=== PATIENT | female | born 1955 | race Caucasian/White ===

== ENCOUNTER 2019-03-25 08:32 | Day surgery (SDC) | payer OTHER ==
[~2019-03-25 08:32] MED LIST: CHONDR SU A NA/HYALUR INTRAOC KIT (SURGICARE) ONE; EPINEPHRINE INJ/PF 1 MG/1 ML AMPULE ONE; KETOROLAC TROMETHAMINE 0.45% 4 DROP/0.4 ML DROPERETTE OS PRN; LIDOCAINE 1%/PHENYLEPHRINE 1.5% 1 ML VIAL ONE
[2019-03-25] MEDS: CYCLOPENTOLATE 0.2%/PHENYLEPHRINE 1% OPH SOLN 2 ML OS PRN ×3 (08:50→09:11)
[2019-03-25] MEDS: TETRACAINE HCL 0.5% OPH SOLN 4 ML OS PRN ×3 (08:50→09:27)
[2019-03-25] MEDS: BESIFLOXACIN HCL 0.6% OPH SUSP 5 ML BOTTLE OS PRN ×4 (08:50→09:46)
[2019-03-25] MEDS: TROPICAMIDE 1% OPH SOLN 15 ML OS PRN ×3 (08:50→09:11)
[2019-03-25] MEDS ORDERED: MIDAZOLAM 2 MG/2 ML INJ ONE (09:10)
[2019-03-25] MEDS ORDERED: FENTANYL CITRATE INJ/PF 100 MCG/2 ML AMPUL ONE (09:10)
[2019-03-25] MEDS: DORZOLAMIDE HCL 2%/TIMOLOL MALEAT 0.5% OPH SOLN 10 ML OS PRN ×2 (09:46)
--- NOTE | 2019-03-25 14:31 | Operative Report ---
Operative Report[facility] Operative Report: DATE OF SURGERY: March 25, 2019 PREOPERATIVE DIAGNOSIS: NUCLEAR CATARACT, LEFT EYE. POSTOPERATIVE DIAGNOSIS: NUCLEAR CATARACT, LEFT EYE. PROCEDURE PERFORMED: PHACOEMULSIFICATION WITH POSTERIOR CHAMBER INTRAOCULAR LENS IMPLANT, LEFT EYE. SURGEON: Narciso Willams DO MEDICATIONS AND ANESTHESIA: Versed: IV Versed Tetracaine drops: 1 to 2 drops given as needed COMPLICATION: None INDICATIONS FOR SURGERY: Medical necessity: Best corrected visual acuity worse than 20/40 secondary to cataracts with impairment of ability to carry out needs or desired activities, blurred vision, visual distortion, reduced contrast sensitivity and/or glare with association functional impairment and supporting documentation/testing, and cataracts causing symptomatic impairment of visual functions not corrected with tolerable changes in glasses or contact lenses interfering with activities of daily life. PROCEDURE: Consent: The risks, benefits and alternatives of this procedures was discussed with the patient. The patient read and signed the consent forms, was identified and was seated in the exam chair. IOL: MX 60 E IOL Diopters: 23.5 Phacoemulsification with posterior chamber intraocular lens implant: The face was prepped with 5% povidone iodine solution, and a few drops of 5% povidone iodine solution was instilled into the inferior fornix. A non-fenestrated drape was placed over the eye and the lids were parted with the speculum. A paracentesis was made with a 15 degree blade, and 1% lidocaine MPF followed by viscoelastic was injected into the anterior chamber. A 2.4 mm metal micro- keratome was used to create a temporal clear corneal incision. A circular anterior capsulorrhexis was created, followed by hydro-dissection and hydro- delineation. The phacoemulsification hand piece was inserted and the nucleus was removed with the Phaco chop technique. The irrigation-aspiration hand piece was used to remove the residual cortex, and vacuum the posterior capsule. The capsular bag was inflated and viscoelastic and the above-mentioned IOL was injected into the eye with care to insert both leaning and trailing haptics in the capsular bag. The irrigation/aspiration hand piece was reinserted to remove residual viscoelastic from the capsular bag and anterior chamber. The corneal incision was hydrated, and anterior chamber was inflated with sterile BSS via the paracentesis site, and found to be watertight. Postop medication:1 drop of prednisolone into operative by followed by 1 drop of Cosopt into operative eye followed by 1 drop of Besivance intraoperative by Other:
== END 2019-03-25 10:26 | disposition home or self-care (01) ==
LOC: SC 08:32
PROVIDERS: ATTEND Ophthalmology
DX: H25.12 Age-related nuclear cataract, left eye (principal); Z79.899 Other long term (current) drug therapy; Z87.891 Personal history of nicotine dependence; I10 Essential (primary) hypertension; E78.00 Pure hypercholesterolemia, unspecified
CPT/HCPCS: 66984; V2632; J2250; J3490 ×2; J0171; J2370; 142; J3010

== ENCOUNTER 2019-04-08 06:41 | Day surgery (SDC) | payer OTHER ==
[~2019-04-08 06:41] MED LIST changes: -CHONDR SU A NA/HYALUR INTRAOC KIT (SURGICARE) ONE; -EPINEPHRINE INJ/PF 1 MG/1 ML AMPULE ONE; +KETOROLAC TROMETHAMINE 0.45% 4 DROP/0.4 ML DROPERETTE OD PRN; -KETOROLAC TROMETHAMINE 0.45% 4 DROP/0.4 ML DROPERETTE OS PRN; -LIDOCAINE 1%/PHENYLEPHRINE 1.5% 1 ML VIAL ONE
[2019-04-08] MEDS ORDERED: FENTANYL CITRATE INJ/PF 100 MCG/2 ML AMPUL ONE (06:51)
[2019-04-08] MEDS ORDERED: MIDAZOLAM 2 MG/2 ML INJ ONE (06:51)
[2019-04-08] MEDS: BESIFLOXACIN HCL 0.6% OPH SUSP 5 ML BOTTLE OD PRN ×4 (06:55→07:52)
[2019-04-08] MEDS: TETRACAINE HCL 0.5% OPH SOLN 4 ML OD PRN ×4 (06:55→07:29)
[2019-04-08] MEDS: CYCLOPENTOLATE 0.2%/PHENYLEPHRINE 1% OPH SOLN 2 ML OD PRN ×3 (06:55→07:15)
[2019-04-08] MEDS: TROPICAMIDE 1% OPH SOLN 15 ML OD PRN ×3 (06:55→07:15)
[2019-04-08] MEDS: EPINEPHRINE INJ/PF 1 MG/1 ML AMPULE ONE ×2 (07:35→07:37)
[2019-04-08] MEDS: LIDOCAINE 1%/PHENYLEPHRINE 1.5% 1 ML VIAL ONE ×2 (07:35→07:37)
[2019-04-08] MEDS: CHONDR SU A NA/HYALUR INTRAOC KIT (SURGICARE) ONE ×2 (07:36→07:37)
[2019-04-08] MEDS: DORZOLAMIDE HCL 2%/TIMOLOL MALEAT 0.5% OPH SOLN 10 ML OD PRN ×2 (07:52)
--- NOTE | 2019-04-08 12:35 | Operative Report ---
Operative Report-[facility] Operative Report: DATE OF SURGERY: April 08, 2019 PREOPERATIVE DIAGNOSIS: NUCLEAR CATARACT, RIGHT EYE. POSTOPERATIVE DIAGNOSIS: NUCLEAR CATARACT, RIGHT EYE. PROCEDURE PERFORMED: PHACOEMULSIFICATION WITH POSTERIOR CHAMBER INTRAOCULAR LENS IMPLANT, RIGHT EYE. SURGEON: Narciso Willams DO MEDICATIONS AND ANESTHESIA: Versed: IV Versed Tetracaine drops: 1 to 2 drops given as needed COMPLICATION: None INDICATIONS FOR SURGERY: Medical necessity: Best corrected visual acuity worse than 20/40 secondary to cataracts with impairment of ability to carry out needs or desired activities, blurred vision, visual distortion, reduced contrast sensitivity and/or glare with association functional impairment and supporting documentation/testing, and cataracts causing symptomatic impairment of visual functions not corrected with tolerable changes in glasses or contact lenses interfering with activities of daily life. PROCEDURE: Consent: The risks, benefits and alternatives of this procedures was discussed with the patient. The patient read and signed the consent forms, was identified and was seated in the exam chair. IOL: MX 60 E IOL Diopters: 23.0 Phacoemulsification with posterior chamber intraocular lens implant: The face was prepped with 5% povidone iodine solution, and a few drops of 5% povidone iodine solution was instilled into the inferior fornix. A non-fenestrated drape was placed over the eye and the lids were parted with the speculum. A paracentesis was made with a 15 degree blade, and 1% lidocaine MPF followed by viscoelastic was injected into the anterior chamber. A 2.4 mm metal micro- keratome was used to create a temporal clear corneal incision. A circular anterior capsulorrhexis was created, followed by hydro-dissection and hydro- delineation. The phacoemulsification hand piece was inserted and the nucleus was removed with the Phaco chop technique. The irrigation-aspiration hand piece was used to remove the residual cortex, and vacuum the posterior capsule. The capsular bag was inflated and viscoelastic and the above-mentioned IOL was injected into the eye with care to insert both leaning and trailing haptics in the capsular bag. The irrigation/aspiration hand piece was reinserted to remove residual viscoelastic from the capsular bag and anterior chamber. The corneal incision was hydrated, and anterior chamber was inflated with sterile BSS via the paracentesis site, and found to be watertight. Postop medication: 1 drop of prednisolone into operative by followed by 1 drop of Cosopt into operative eye followed by 1 drop of Besivance intraoperative by other:
== END 2019-04-09 08:26 | disposition home or self-care (01) ==
LOC: SC 06:41
PROVIDERS: ATTEND Ophthalmology
DX: H25.11 Age-related nuclear cataract, right eye (principal); Z98.42 Cataract extraction status, left eye; I10 Essential (primary) hypertension; E78.00 Pure hypercholesterolemia, unspecified; Z87.891 Personal history of nicotine dependence
CPT/HCPCS: 66984; 00142; V2632; J2250; J3490 ×2; J0171; J3010; J2370; 142

== ENCOUNTER → 2019-10-28 | Outpatient (CLI) | payer OTHER ==
--- NOTE | 2019-10-28 15:32 | RADIOLOGY REPORT (SQ) ---
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 TECHNIQUE: CT scan performed of the chest without intravenous contrast. Images reviewed with lung, soft tissue and bone windows. Reconstructed coronal and sagittal MPR images reviewed. All images st ored on PACS. All CT scanners at this facility use dose modulation, iterative reconstruction, and/or weight based d osing when appropriate to reduce radiation dose to as low as reasonably achievable (ALARA). [facility]: Dose Right [facility]: CareDose [facility]: Dose Right [facility]: Teradose 4D [facility]: [employer] RADIATION DOSE: CT Rad equipment meets quality standard of care and radiation dose reduction techniq ues were employed. CTDIvol: 3.0 mGy. DLP: 129 mGy-cm. LIMITATIONS: No technical limitations. FINDINGS: LUNGS AND PLEURA: The trachea main bronchi are patent. There is no bronchiectasis, bronch ial wall thickening or segmental mucus plugging. There is no consolidation, ground-glass opacificati on, pleural effusion or greater than 6 mm pulmonary nodule or mass. HILAR AND MEDIASTINAL STRUCTURES: Evaluation of the desiree for adenopathy is limited due to the absence of intravenous contrast. There is no mediastinal adenopathy. HEART AND VASCULAR STRUCTURES: No aneurysm of the thoracic aorta. No cardiomegaly or pericardial eff usion. UPPER ABDOMEN: Cholelithiasis. THYROID AND OTHER SOFT TISSUES: No mass or adenopathy. BONES: No acute findings. HARDWARE: None in the chest. OTHER: No other findings. IMPRESSION: No acute cardiopulmonary process. TECHNICAL DOCUMENTATION: JOB ID: [id number] Quality ID # [id number]: Final reports with documentation of one or more dose reduction techniques (e.g., Au tomated exposure control, adjustment of the mA and/or kV according to patient size, use of iterative reconstruction technique) 2010 [employer]- All Rights Reserved Reading location - IP/workstation name: [email or web address]
--- NOTE | 2019-10-29 09:41 | RADIOLOGY REPORT (SQ) ---
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 TECHNIQUE: Post IV contrasted scanning from skull base through lung apices with review of bone, soft tissue and lung windows. Reconstructed coronal and sagittal MPR images reviewed. All images stored on PACS. All CT scanners at this facility use dose modulation, iterative reconstruction, and/or weight based d osing when appropriate to reduce radiation dose to as low as reasonably achievable (ALARA). [facility]: Dose Right [facility]: CareDose [facility]: Dose Right [facility]: Teradose 4D [facility]: [employer] CONTRAST TYPE AND DOSE: contrast/concentration: Isovue 350.00 mmol/ml; Total Contrast Delivered: 75. 0 ml; Total Saline Delivered: 55.0 ml RENAL FUNCTION: GFR > 60. RADIATION DOSE: . LIMITATIONS: None. FINDINGS: SKULL BASE: Intact. MAJOR SALIVARY GLANDS: No solid or cystic masses. No inflammatory changes. LYMPHADENOPATHY: No adenopathy. MUCOSAL MASSES OR ASYMMETRY: No mucosal masses or asymmetry. LARYNX/CORDS: No abnormal findings. VASCULAR STRUCTURES: The major vessels are patent. LUNG APICES: Clear. BONES: Intact. THYROID: Normal size. No masses. PARANASAL SINUSES: Clear. OTHER: No other significant finding. IMPRESSION: NO SIGNIFICANT FINDING IN THE SOFT TISSUES OF THE NECK. TECHNICAL DOCUMENTATION: JOB ID: [id number] Quality ID # [id number]: Final reports with documentation of one or more dose reduction techniques (e.g., Au tomated exposure control, adjustment of the mA and/or kV according to patient size, use of iterative reconstruction technique) 2010 Robert Applebaum MD- All Rights Reserved Reading location - IP/workstation name: [email or web address]
== END ==
LOC: RAD 13:18
PROVIDERS: ATTEND Otolaryngology
DX: C03.9 Malignant neoplasm of gum, unspecified (principal); K80.20 Calculus of gallbladder without cholecystitis without obstruction
CPT/HCPCS: 70491; 71250; 82565

== ENCOUNTER 2019-11-27 13:15 | Emergency (ER) | payer OTHER ==
--- NOTE | 2019-11-27 14:01 | ER Document Report ---
ED Medical Screen (RME) - General Chief Complaint: Medical Complaint Stated Complaint: NAUSEA/VOMITING Time Seen by Provider: 11/27/19 13:47 Primary Care Provider: TIM DICKEY MD [Primary Care Provider] - Follow up as needed Mode of Arrival: Wheelchair Information source: Patient Notes: 64-year-old old female presents to ED for nausea vomiting unable to keep food down. She has mouth cancer. She was seen on November 08 for cancer surgery they removed her left lower teeth her gums or teeth and part of her gums. She states she is waiting until next Saturday to get the results of the surgery. She states she has been nauseated and vomiting since the surgery. She states they told her she would be nauseated and vomiting until she could be treated. She st ates they did not give her any nausea medicine. She has returned to the [facility] a week ago and they removed all the packing but she is still nauseated and vomiting. She does have a history of high blood pressure pilonidal cyst bilateral tubal ligation tonsillectomy and surgery to remove cancer from the mouth and gums. I am ordering blood urine and IV fluids with Zofran. She states she was tested for Covera before surgery and was negative. I have greeted and performed a rapid initial assessment of this patient. A comprehensive ED assessment and evaluation of the patient, analysis of test results and completion of medical decision making process will be conducted by an additional ED providers. TRAVEL OUTSIDE OF THE [place] IN LAST 30 DAYS: No - Related Data Allergies/Adverse Reactions: No Known Allergies Allergy (Verified 03/31/19 16:21) Past Medical History - Past Medical History Cardiac Medical History: Reports: Hx Coronary Artery Disease, Hx Hypercholesterolemia Denies: Hx Heart Attack, Hx Hypertension - HYPOTENSIVE, SYNCOPE LAST 01/2016 Pulmonary Medical History: Denies: Hx Asthma, Hx Bronchitis, Hx COPD, Hx Pneumonia Neurological Medical History: Denies: Hx Cerebrovascular Accident, Hx Seizures GI Medical History: Denies: Hx Hepatitis, Hx Hiatal Hernia, Hx Ulcer Musculoskeltal Medical History: Reports Hx Arthritis Infectious Medical History: Denies: Hx Hepatitis Past Surgical History: Reports: Hx Tonsillectomy, Hx Tubal Ligation. Denies: Hx Hysterectomy, Hx Mastectomy, Hx Open Heart Surgery, Hx Pacemaker - Immunizations Hx Diphtheria, Pertussis, Tetanus Vaccination: Yes Physical Exam - Vital signs Vitals: Temp Pulse Resp BP Pulse Ox 98.2 F 114 H 16 108/57 L 97 11/27/19 13:22 11/27/19 13:22 11/27/19 13:22 11/27/19 13:22 11/27/19 13:22 Course - Vital Signs Vital signs: Temp Pulse Resp BP Pulse Ox 98.2 F 114 H 16 108/57 L 97 11/27/19 13:22 11/27/19 13:22 11/27/19 13:22 11/27/19 13:22 11/27/19 13:22 Doctor's Discharge - Discharge Referrals: TIM DICKEY MD [Primary Care Provider] - Follow up as needed
[2019-11-27] MEDS ORDERED: NORMAL SALINE 1000 ML 1,000 ML IV ONE ×2 (14:02→17:11)
[2019-11-27] MEDS ORDERED: ONDANSETRON HCL INJ/PF 4 MG/2 ML SDV IV ONE (14:02)
[2019-11-27 14:33] LABS: ABSOLUTE BASOPHILS # (AUTO) 0.1 10^3/uL (0.0-0.2); ABSOLUTE EOSINOPHILS # (AUTO) 0.1 10^3/uL (0.0-0.6); ABSOLUTE LYMPHOCYTES (AUTO) 0.9 10^3/uL (0.5-4.7); ABSOLUTE NEUT (AUTO) 6.5 10^3/uL (1.7-8.2); BASOPHILS % (AUTO) 0.7 % (0-2); EOSINOPHILS % (AUTO) 0.9 % (0-6); HEMATOCRIT 37.9 % (36.0-47.0); HEMOGLOBIN 13.7 g/dL (12.0-15.5); LYMPHOCYTES % (AUTO) 10.7 % (13-45); MEAN CORPUSCULAR HEMOGLOBIN 30.4 pg (27.0-33.4); MEAN CORPUSCULAR HGB CONC 36.2 g/dL (32.0-36.0); MEAN CORPUSCULAR VOLUME 84 fl (80-97); MONOCYTES % (AUTO) 11.3 % (3-13); PLATELET COUNT 221 10^3/uL (150-450); RED CELL DISTRIBUTION WIDTH 12.6 % (11.5-14.0); SEGMENTED NEUTROPHILS % (AUTO) 76.4 % (42-78); TOTAL CELLS COUNTED % (AUTO) 100 %; WHITE BLOOD COUNT 8.5 10^3/uL (4.0-10.5)
[2019-11-27 14:57] LABS: ALBUMIN 4.1 g/dL (3.5-5.0); ALKALINE PHOSPHATASE 98 U/L (38-126); ANION GAP 17 (5-19); ASPARTATE AMINO TRANSFERASE 38 U/L (14-36); BILIRUBIN,DIRECT 0.5 mg/dL (0.0-0.4); BILIRUBIN,TOTAL 0.9 mg/dL (0.2-1.3); BLOOD UREA NITROGEN 16 mg/dL (7-20); CALCIUM 9.4 mg/dL (8.4-10.2); CARBON DIOXIDE 32 mmol/L (22-30); CHLORIDE 81 mmol/L (98-107); GLUCOSE 131 mg/dL (75-110); NEONATAL BILIRUBIN RESULT 0.4 mg/dL (0.1-1.1); POTASSIUM 3.2 mmol/L (3.6-5.0); TOTAL PROTEIN 6.8 g/dL (6.3-8.2)
--- NOTE | 2019-11-27 17:09 | ER Document Report ---
ED General - General Chief Complaint: Nausea/Vomiting Stated Complaint: NAUSEA/VOMITING Time Seen by Provider: 11/27/19 13:47 Primary Care Provider: TIM DICKEY MD [NO LOCAL MD] - Follow up as needed Mode of Arrival: Wheelchair TRAVEL OUTSIDE OF THE [place] IN LAST 30 DAYS: No - HPI Notes: Patient is a 64-year-old female with a history of mouth cancer who presents with weakness, nausea, and vomiting. Patient was diagnosed with mouth cancer in August 2019. She had surgery 2027 [facility] where they removed some of her teeth and mandible on the right side. She was initially started on a liquid diet which progressed to soft foods on 11/16/2019. Since her surgery she has had nausea and vomiting and decreased appetite. Patient states that she was taking an antibiotic postoperatively which caused her to be sick to her stomach. She stopped taking the antibiotic on 11/16/2019 but has an unpleasant taste in her mouth due to the skin graft that was placed which makes it hard for her to keep food down. Over the past few days patient has felt lightheaded and very weak as she has not been eating much or keeping much food down. She denies chest pain, shortness of breath, fever, and abdominal pain. Patient has a follow-up appoin tment at [facility] on 11/30/2019. Patient denies tobacco, alcohol, and recreational drug use. - Related Data Allergies/Adverse Reactions: No Known Allergies Allergy (Verified 03/31/19 16:21) Home Medications: latanoprost Past Medical History - General Information source: Patient - Social History Smoking Status: Never Smoker Chew tobacco use (# tins/day): No Frequency of alcohol use: None Drug Abuse: None Family History: Reviewed & Not Pertinent - Past Medical History Cardiac Medical History: Reports: Hx Coronary Artery Disease, Hx Hypercholesterolemia Denies: Hx Heart Attack, Hx Hypertension - HYPOTENSIVE, SYNCOPE LAST 01/2016 Pulmonary Medical History: Denies: Hx Asthma, Hx Bronchitis, Hx COPD, Hx Pneumonia Neurological Medical History: Denies: Hx Cerebrovascular Accident, Hx Seizures GI Medical History: Denies: Hx Hepatitis, Hx Hiatal Hernia, Hx Ulcer Musculoskeletal Medical History: Reports Hx Arthritis Infectious Medical History: Denies: Hx Hepatitis Past Surgical History: Reports: Hx Oral Surgery, Hx Tonsillectomy, Hx Tubal Ligation. Denies: Hx Hysterectomy, Hx Mastectomy, Hx Open Heart Surgery, Hx Pacemaker - Immunizations Hx Diphtheria, Pertussis, Tetanus Vaccination: Yes Review of Systems - Review of Systems Constitutional: See HPI EENT: No symptoms reported Cardiovascular: No symptoms reported Respiratory: No symptoms reported Gastrointestinal: See HPI Genitourinary: No symptoms reported Female Genitourinary: No symptoms reported Musculoskeletal: No symptoms reported Skin: No symptoms reported Hematologic/Lymphatic: No symptoms reported Neurological/Psychological: No symptoms reported Physical Exam - Vital signs Vitals: Temp Pulse Resp BP Pulse Ox 98.2 F 114 H 16 108/57 L 97 11/27/19 13:22 11/27/19 13:22 11/27/19 13:22 11/27/19 13:22 11/27/19 13:22 - Notes Notes: PHYSICAL EXAMINATION: VITALS: Vitals reviewed and patient is tachycardic and mildly hypotensive. GENERAL: Well-appearing, thin and in no acute distress. HEAD: Atraumatic, normocephalic. EYES: Pupils equal round and reactive to light, extraocular movements intact, sclera anicteric, conjunctiva are normal. ENT: nares patent, oropharynx clear without exudates. Moist mucous membranes. Missing teeth and bone to the right lower mouth. Well healing surgical scars with no erythema or drainage. NECK: Normal range of motion, supple without lymphadenopathy. LUNGS: Breath sounds clear to auscultation bilaterally and equal. No wheezes rales or rhonchi. HEART: Tachycardia with regular rhythm without murmurs. ABDOMEN: Soft, nontender, normoactive bowel sounds. No guarding, no rebound. No masses appreciated. EXTREMITIES: Normal range of motion, no pitting or edema. No cyanosis. NEUROLOGICAL: No focal neurological deficits. Moves all extremities spontaneously and on command. PSYCH: Normal mood, normal affect. SKIN: Warm, Dry, normal turgor, no rashes or lesions noted. Course - Re-evaluation Re-evalutation: Patient is a 64-year-old female with a history of mouth cancer who presents with weakness, nausea, and vomiting. She had recent surgery for her mouth cancer about 2 weeks ago and since then has had issues keeping down food as well as a d ecreased appetite. Today she started feeling weak and lightheaded which caused her to come to the ED. Patient is tachycardic and mildly hypotensive. On exam, patient is thin but in no acute distress. Surgical incisions in the mouth are healing well with no erythema, swelling or drainage. Patient given 1L of normal saline and Zofran. Sodium is low at 130.3 and potassium is low at 3.2. CBC is unremarkable. UA shows protein 100, ketones 20, moderate blood, and specific gravity of 1.024. Urine is cloudy and dark yellow in appearance. 11/27/19 18:06 Notified by RN that patient would like to try to drink something, will proceed with PO challenge. 04/16 18:43 Patient tolerated PO challenge well. Patient's presentation and work-up are consistent with dehydration. 2L of normal saline given while here in the ED as well as a dose of Zofran. Patient states she is feeling better. We had a lengthy discussion concerning the importance of drinking and eating regularly. I recommended Ensure or boost supplementation if she continues to struggle to keep normal soft foods down. Patient will be discharged home with a prescription for Zofran. Return precautions given. Patient instructed to follow-up at her scheduled appointment this coming Saturday. Patient understands and is in agreement with plan. - Vital Signs Vital signs: Temp Pulse Resp BP Pulse Ox 99.5 F 74 14 94/49 L 100 11/27/19 19:06 11/27/19 19:06 11/27/19 19:06 11/27/19 19:06 11/27/19 19:06 - Laboratory Result Diagrams: 11/27/19 14:13 11/27/19 14:13 Laboratory results interpreted by me: 11/27/19 11/27/19 11/27/19 14:13 14:13 16:34 MCHC 36.2 H Lymph % (Auto) 10.7 L Sodium 130.3 L Potassium 3.2 L Chloride 81 L Carbon Dioxide 32 H Glucose 131 H Direct Bilirubin 0.5 H AST 38 H Urine Protein 100 H Urine Ketones 20 H Urine Blood MODERATE H Urine Bilirubin SMALL H Urine Urobilinogen 4.0 H Discharge - Discharge Clinical Impression: Dehydration Nausea & vomiting Qualifiers: Vomiting type: unspecified Vomiting Intractability: non-intractable Qualified Code(s): R11.2 - Nausea with vomiting, unspecified Condition: Stable Disposition: HOME, SELF-CARE Additional Instructions: Dehydration Dehydration can result from vomiting or diarrhea, fever, or decreased intake of fluids. If severe, hospitalization and intravenous fluids may be required. Most cases are treated at home with fluids by mouth. For the next 24 hours, drink lots of clear fluids. In mild cases, this can be soda pop or sports drinks. For more severe dehydration, the doctor may recommend special fluids such as Pedialyte or Lytren. Try to get three liters (3 quarts) of fluid per day. If vomiting occurs, continue to drink the fluids frequently (every 15 to 20 minutes), but in small amounts (one or two ounces). Depending on the type of dehydration, the doctor may prescribe antinausea medicine or potassium replacements. Call the doctor or return for re-examination if you become progressively weak, vomit repeatedly, or have other new symptoms. Prescriptions: Ondansetron [Zofran Odt 4 mg Tablet] 1 - 2 tab PO Q4HP PRN #[id number] tab.rapdis PRN Reason: Referrals: TIM DICKEY MD [NO LOCAL MD] - Follow up as needed
[2019-11-27 17:24] LABS: APPEARANCE,URINE CLOUDY; BILIRUBIN,URINE SMALL (NEGATIVE); GLUCOSE, URINE NEGATIVE (NEGATIVE); KETONES,URINE 20 mg/dL (NEGATIVE); LEUKOCYTE ESTERASE,URINE NEGATIVE (NEGATIVE); NITRITE,URINE NEGATIVE (NEGATIVE); PROTEIN,URINE 100 mg/dL (NEGATIVE); URINE SPECIFIC GRAVITY 1.024
[2019-11-27 17:25] LABS: COLOR,URINE DARK YELLOW
[2019-11-27] MEDS ORDERED: ONDANSETRON ODT 4 MG TAB (6 TAB/ER DISP) PO PRN (18:49)
[2019-11-27 19:15] VITALS: BP 94/49
== END 2019-11-27 19:15 | disposition home or self-care (01) ==
LOC: ER 13:15
DX: R11.2 Nausea with vomiting, unspecified (principal); E86.0 Dehydration; R63.0 Anorexia; R53.1 Weakness; R00.0 Tachycardia, unspecified; I25.10 Atherosclerotic heart disease of native coronary artery without angina pectoris; Z79.899 Other long term (current) drug therapy; K08.499 Partial loss of teeth due to other specified cause, unspecified class; Z90.09 Acquired absence of other part of head and neck
CPT/HCPCS: 99284; 96361; 96374; 36415; 87086; 83690; 85025; 87088; 80053; 81001; J2405; J7030

== ENCOUNTER 2019-12-25 16:40 | Inpatient (IN) | payer OTHER ==
[2019-12-25] MEDS ORDERED: ONDANSETRON HCL INJ/PF 4 MG/2 ML SDV IV ONE (17:23)
[2019-12-25] MEDS ORDERED: NORMAL SALINE 1000 ML 1,000 ML IV ONE (17:23)
--- NOTE | 2019-12-25 17:32 | ER Document Report ---
ED Medical Screen (RME) - General Chief Complaint: Vomiting Stated Complaint: DR PATEL - VOMITING Time Seen by Provider: 12/25/19 17:20 TRAVEL OUTSIDE OF THE [place] 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 Sanchez's office with complaints of nausea, constipation, failure to thrive. She has not been able to have a bowel movement since middle october. She is also been vomiting nearly every single day since the beginning of the month. She went and saw Dr. Sanchez today and he sent her to the emergency department for further evaluation. He would like for her to have a CT scan of her abdomen to evaluate her for ileus. Patient states she has not been able to hold down any solid foods or fluids in the past several days. Denies any fevers or chills. She has had a significant weight loss from about 138lbs at the beginning of October to 89 pounds today. On brief medical screening exam, cachectic 64-year-old leaned over and hunched in the wheelchair. She is obviously very weak. She is nontender to palpation of her abdomen. Advised charge nurse of the patient. She will get her into bed soon as possible. I performed a brief medical screening exam on the patient determined that the patient needs further evaluation and management by main side provider. I have placed initial orders to help expedite care. - Related Data Allergies/Adverse Reactions: No Known Allergies Allergy (Verified 03/31/19 16:21) Past Medical History - Social History Chew tobacco use (# tins/day): No Frequency of alcohol use: None Drug Abuse: None - Past Medical History Cardiac Medical History: Reports: Hx Coronary Artery Disease, Hx Hypercholesterolemia Denies: Hx Heart Attack, Hx Hypertension - HYPOTENSIVE, SYNCOPE LAST 01/2016 Pulmonary Medical History: Denies: Hx Asthma, Hx Bronchitis, Hx COPD, Hx Pneumonia Neurological Medical History: Denies: Hx Cerebrovascular Accident, Hx Seizures GI Medical History: Denies: Hx Hepatitis, Hx Hiatal Hernia, Hx Ulcer Musculoskeltal Medical History: Reports Hx Arthritis Infectious Medical History: Denies: Hx Hepatitis Past Surgical History: Reports: Hx Oral Surgery, Hx Tonsillectomy, Hx Tubal Ligation. Denies: Hx Hysterectomy, Hx Mastectomy, Hx Open Heart Surgery, Hx Pacemaker - Immunizations Hx Diphtheria, Pertussis, Tetanus Vaccination: Yes Physical Exam - Vital signs Vitals: Temp Pulse Resp BP Pulse Ox 98.1 F 104 H 18 105/62 97 12/25/19 16:46 12/25/19 16:46 12/25/19 16:46 12/25/19 16:46 12/25/19 16:46 Course - Vital Signs Vital signs: Temp Pulse Resp BP Pulse Ox 98.1 F 104 H 18 105/62 97 12/25/19 16:46 12/25/19 16:46 12/25/19 16:46 12/25/19 16:46 12/25/19 16:46
[2019-12-25 18:48] LABS: ABSOLUTE BASOPHILS # (AUTO) 0.1 10^3/uL (0.0-0.2); ABSOLUTE LYMPHOCYTES (AUTO) 1.8 10^3/uL (0.5-4.7); ABSOLUTE NEUT (AUTO) 11.6 10^3/uL (1.7-8.2); BASOPHILS % (AUTO) 0.4 % (0-2); EOSINOPHILS % (AUTO) 0.1 % (0-6); HEMATOCRIT 36.2 % (36.0-47.0); HEMOGLOBIN 12.5 g/dL (12.0-15.5); LYMPHOCYTES % (AUTO) 12.4 % (13-45); MEAN CORPUSCULAR HEMOGLOBIN 28.9 pg (27.0-33.4); MEAN CORPUSCULAR HGB CONC 34.4 g/dL (32.0-36.0); MEAN CORPUSCULAR VOLUME 84 fl (80-97); MONOCYTES % (AUTO) 6.7 % (3-13); PLATELET COUNT 384 10^3/uL (150-450); RED BLOOD COUNT 4.32 10^6/uL (3.72-5.28); RED CELL DISTRIBUTION WIDTH 13.4 % (11.5-14.0); SEGMENTED NEUTROPHILS % (AUTO) 80.4 % (42-78); TOTAL CELLS COUNTED % (AUTO) 100 %; WHITE BLOOD COUNT 14.5 10^3/uL (4.0-10.5)
[2019-12-25 19:06] LABS: ALBUMIN 4.6 g/dL (3.5-5.0); ALKALINE PHOSPHATASE 92 U/L (38-126); ASPARTATE AMINO TRANSFERASE 28 U/L (14-36); BILIRUBIN,DIRECT 0.3 mg/dL (0.0-0.4); BLOOD UREA NITROGEN 21 mg/dL (7-20); CALCIUM 9.6 mg/dL (8.4-10.2); GLUCOSE 84 mg/dL (75-110); TOTAL PROTEIN 7.2 g/dL (6.3-8.2)
[2019-12-25 19:11] LABS: CARBON DIOXIDE 26 mmol/L (22-30); CHLORIDE 75 mmol/L (98-107)
[2019-12-25 19:24] LABS: POTASSIUM 2.7 mmol/L (3.6-5.0)
[2019-12-25 19:25] LABS: ANION GAP 28 (5-19)
--- NOTE | 2019-12-25 21:07 | RADIOLOGY REPORT (SQ) ---
EXAM DESCRIPTION: CT ABDOMEN PELVIS WITH IV CONTRAST COMPLETED DATE/TME: 12/25/2019 17:23 CLINICAL HISTORY: 64 years, Female, vomiting, constipation COMPARISON: November 02, 2015 CT TECHNIQUE: Images of the abdomen and pelvis were obtained with oral contrast and 46 mL Omnipaque 350 intravenously. Images stored on PACS. All CT scanners at this facility use dose modulation, iterative reconstruction, and/or weight based dosing when appropriate to reduce radiation dose to as low as reasonably achievable (ALARA). [facility]: Dose Right [facility]: CareDose [facility]: Dose Right [facility]: Teradose 4D [facility]: Smart AiMeiWei LIMITATIONS: None. FINDINGS: Visualized lung bases are clear. There is cholelithiasis. Gallbladder is nondilated. There are 2 small right renal hypodensities measuring 6 mm and less, likely small cysts. The liver, left kidney, adrenals, spleen, and pancreas are unremarkable. Portal vein is patent. There is no free fluid or free air. There is no abnormal bowel dilation. There is a thickened appearance about the ascending and transverse colons in a noncontiguous pattern, which could be due to underdistention and peristalsis or colitis. There is no free air or free fluid. There is no lymphadenopathy. There is no abdominal aortic aneurysm. There is no acute or suspicious bony abnormality. IMPRESSION: 1. Thickened appearance about the ascending and transverse colon and a noncontiguous pattern. This could be due to underdistention and peristalsis or colitis. Clinical correlation is recommended. 2. Cholelithiasis without gross CT evidence of acute cholecystitis, however ultrasound or HIDA scan could be performed as clinically directed. TECHNICAL DOCUMENTATION: Quality ID # 436: Final reports with documentation of one or more dose reduction techniques (e.g., Automated exposure control, adjustment of the mA and/or kV according to patient size, use of iterative reconstruction technique) copyright 2011 [employer]- All Rights Reserved
[2019-12-25] MEDS ORDERED: RINGERS SOLUTION,LACTATED 1,000 ML IV ONE (21:21)
--- NOTE | 2019-12-25 22:32 | RADIOLOGY REPORT (SQ) ---
EXAM DESCRIPTION: Limited abdominal ultrasound CLINICAL HISTORY: 64 years Female; gallstones/ leukocytosis TECHNIQUE: Abdominal ultrasound was performed. COMPARISON: CT scan of the abdomen and pelvis obtained earlier in the evening at 8:36 PM FINDINGS: Pancreas: Pancreas is unremarkable. Liver: The liver measures 12.9 cm in length. Echogenicity is grossly normal. Portal vein is patent with hepatopedal flow.. Gallbladder: The gallbladder is difficult to image. There appears to be stones in the gallbladder fundus. The wall is 2.1 mm. No sonographic Rosa's. Common bile duct: 4.0 mm. Right kidney: The kidney measures 8.9 x 4.7 x 5.4 cm. Echogenicity is within normal limits.. No hydronephrosis. There is a small simple appearing cyst in the kidney. Aorta:Visualized portions are within normal limits. IVC: Visualized portions are within normal limits. Ascites: No free fluid. IMPRESSION: 1. Gallbladder is difficult to visualize but does appear to have gallstones. No evidence of acute cholecystitis. 2. No hydronephrosis. No acute process is seen in the right upper quadrant.
--- NOTE | 2019-12-26 00:19 | ER Document Report ---
ED General - General Chief Complaint: Vomiting Stated Complaint: DR PATEL - VOMITING Time Seen by Provider: 12/25/19 17:20 Notes: 64 year old female arrives with complaints of weakness of nausea and vomiting and weight loss since October. She normally lives at home with her and is healthy. 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 TRAVEL OUTSIDE OF THE [place] IN LAST 30 DAYS: No - HPI Onset/Duration: Gradual Pain Level: Denies Associated symptoms: None Exacerbated by: Denies Relieved by: Denies - Related Data Allergies/Adverse Reactions: No Known Allergies Allergy (Verified 03/31/19 16:21) Past Medical History - Social History Smoking Status: Never Smoker Chew tobacco use (# tins/day): No Frequency of alcohol use: None Drug Abuse: None Family History: Reviewed & Not Pertinent Patient has homicidal ideation: No - Past Medical History Cardiac Medical History: Reports: Hx Coronary Artery Disease, Hx Hypercholesterolemia Denies: Hx Heart Attack, Hx Hypertension - HYPOTENSIVE, SYNCOPE LAST 01/2016 Pulmonary Medical History: Denies: Hx Asthma, Hx Bronchitis, Hx COPD, Hx Pneumonia Neurological Medical History: Denies: Hx Cerebrovascular Accident, Hx Seizures GI Medical History: Denies: Hx Hepatitis, Hx Hiatal Hernia, Hx Ulcer Musculoskeletal Medical History: Reports Hx Arthritis Infectious Medical History: Denies: Hx Hepatitis Past Surgical History: Reports: Hx Oral Surgery, Hx Tonsillectomy, Hx Tubal Ligation. Denies: Hx Hysterectomy, Hx Mastectomy, Hx Open Heart Surgery, Hx Pacemaker - Immunizations Hx Diphtheria, Pertussis, Tetanus Vaccination: Yes Review of Systems - Review of Systems Constitutional: No symptoms reported EENT: No symptoms reported Cardiovascular: No symptoms reported Respiratory: No symptoms reported Gastrointestinal: See HPI, Nausea, Vomiting. denies: No symptoms reported Genitourinary: No symptoms reported Female Genitourinary: No symptoms reported Musculoskeletal: No symptoms reported Skin: No symptoms reported Hematologic/Lymphatic: No symptoms reported Neurological/Psychological: No symptoms reported Physical Exam - Vital signs Vitals: Temp Pulse Resp BP Pulse Ox 98.1 F 104 H 18 105/62 97 12/25/19 16:46 12/25/19 16:46 12/25/19 16:46 12/25/19 16:46 12/25/19 16:46 Interpretation: Normal - General General appearance: Appears well, Alert - HEENT Head: Normocephalic, Atraumatic Eyes: Normal Pupils: PERRL Mucous membranes: Dry - Respiratory Respiratory status: No respiratory distress Chest status: Nontender Breath sounds: Normal Chest palpation: Normal - Cardiovascular Rhythm: Regular Heart sounds: Normal auscultation Murmur: No - Abdominal Inspection: Normal Distension: No distension Bowel sounds: Normal Tenderness: Nontender Organomegaly: No organomegaly - Back Back: Normal, Nontender - Extremities General upper extremity: Normal inspection, Nontender, Normal color, Normal ROM, Normal temperature General lower extremity: Normal inspection, Nontender, Normal color, Normal ROM, Normal temperature, Normal weight bearing. No: Lucie's sign - Neurological Neuro grossly intact: Yes Cognition: Normal Orientation: AAOx4 Nicholas Coma Scale Eye Opening: Spontaneous Nicholas Coma Scale Verbal: Oriented Nicholas Coma Scale Motor: Obeys Commands Nicholas Coma Scale Total: 15 Speech: Normal Motor strength normal: LUE, RUE, LLE, RLE Sensory: Normal - Psychological Associated symptoms: Normal affect, Normal mood - Skin Skin Temperature: Warm Skin Moisture: Dry Skin Color: Normal Course - Re-evaluation Re-evalutation: 12/26/19 00:16 MDM 64 year old with about 40 pound weight loss and nausea and vomiting since Oct 2019. She is found to have acute kidney injury here and some dehydration. We discussed admission and she is agreeable. I have discussed the pt with Dr. Isaacs and he has graciously agreed to see and evaluate for admission. - Vital Signs Vital signs: Temp Pulse Resp BP Pulse Ox 98.1 F 104 H 18 105/60 98 12/25/19 16:46 12/25/19 16:46 12/25/19 16:46 12/25/19 22:35 12/25/19 23:00 - Laboratory Result Diagrams: 12/25/19 17:54 12/25/19 17:54 Laboratory results interpreted by me: 12/25/19 12/25/19 17:54 17:54 WBC 14.5 H Lymph % (Auto) 12.4 L Absolute Neuts (auto) 11.6 H Seg Neutrophils % 80.4 H Sodium 128.6 L Potassium 2.7 L* Chloride 75 L Anion Gap 28 H BUN 21 H Creatinine 1.41 H Est GFR ( Amer) 46 L Est GFR (MDRD) Non-Af 38 L Discharge - Discharge Clinical Impression: Acute kidney injury, Hypokalemia, Gallstones Condition: Stable Disposition: ADMITTED OBSERVATION Admitting Provider: Ferny (Hospitalist) Unit Admitted: Medical Floor
[2019-12-26] MEDS ORDERED: MAGNESIUM HYDROXIDE SUSP 30 ML UDCUP PO PRN (01:07)
[2019-12-26] MEDS ORDERED: ONDANSETRON HCL INJ/PF 4 MG/2 ML SDV IV PRN (01:07)
[2019-12-26] MEDS ORDERED: MAG HYDROX/AL HYDROX/SIMETH SUSP 30 ML UDCUP PO PRN (01:07)
[2019-12-26] MEDS ORDERED: ACETAMINOPHEN 325 MG TABLET PO PRN (01:14)
[2019-12-26] MEDS ORDERED: LORAZEPAM INJ 2 MG/1 ML VIAL IV PRN (01:14)
[2019-12-26] MEDS ORDERED: GUAIFENESIN SYRP 200 MG/10 ML UDC PO PRN (01:14)
[2019-12-26] MEDS ORDERED: MELATONIN 5 MG TABLET PO PRN (01:14)
[2019-12-26] MEDS ORDERED: MORPHINE SULFATE 10 MG/ML INJ IV PRN ×5 (01:14→08:11)
[2019-12-26] MEDS: POTASSI CL 20 MEQ/NS 1L 1,000 ML IV PRN ×4 (02:00→23:21)
[2019-12-26 02:24] LABS: FREE T3 1.68 pg/mL (2.77-5.27); FREE T4 (FREE THYROXINE) 1.74 ng/dL (0.78-2.19)
[2019-12-26 02:38] LABS: THYROID STIMULATING HORMONE 1.61 uIU/mL (0.47-4.68)
--- NOTE | 2019-12-26 04:51 | PDOC H&P ---
History of Present Illness Admission Date/PCP: 12/26/19 00:33 Dr. Sanchez Patient complains of: Weight loss History of Present Illness: DAVE PAZ is a 64 year old female who presented to the emergency room from Dr. Sanchez's office with a 2-month history of weight loss. 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 She underwent 2 surgical procedures and was reported as resected for cure. Since that time she has been gradually losing weight as she currently weighs 89 pounds. Her weight loss has been accompanied by progressive generalized weakness and has been associated with decreased appetite and chronic nausea with vomiting. She denies other associated or accompanying signs and symptoms. She denies prior similar episodes. She has not identified any additional aggravating or ameliorating factors for her weight loss. In the emergency room she was found to be cachectic and was noted to have hypokalemia, a mildly elevated white blood cell count, and minimally elevated lactic acid and an acute kidney injury. She was subsequently admitted to the hospital for further evaluation and treatment with Dr. Sanchez to be consulted at his direction. Past Medical History Cardiac Medical History: Reports: Coronary Artery Disease, Hyperlipidema Denies: Myocardial Infarction, Hypertension Pulmonary Medical History: Denies: Asthma, Bronchitis, Chronic Obstructive Pulmonary Disease (COPD), Pneumonia EENT Medical History: Reports: Cataracts, Eyes - Glaucoma, corrective lenses Denies: Ears - Hearing aid Neurological Medical History: Denies: Hemorrhagic CVA, Ischemic CVA, Seizures Endocrine Medical History: Denies: Diabetes Mellitus Type 1, Diabetes Mellitus Type 2, Hyperthyroidism, Hypothyroidism, Obesity Renal/ Medical History: Denies: Chronic Kidney Disease, Nephrolithiasis Malignancy Medical History: Reports: Other - Oral cancer GI Medical History: Denies: Cirrhosis, Crohn's Disease, Hepatitis, Hiatal Hernia, Peptic Ulcer Disease, Ulcerative Colitis Musculoskeltal Medical History: Reports: Arthritis Denies: Fibromyalgia Skin Medical History: Denies: Eczema, Psoriasis Psychiatric Medical History: Denies: Alcohol Dependency, Substance Abuse, Tobacco Dependency Traumatic Medical History: Reports: None Hematology: Denies: Anemia, Bleeding Tendencies Infectious Medical History: Reports: None Past Surgical History Past Surgical History: Reports: Tonsillectomy, Tubal Ligation, Other - Oral surgery x2 for gingival carcinoma Social History Information Source: Patient Lives with: Spouse/Significant other Smoking Status: Former Smoker Electronic Cigarette use?: No Frequency of Alcohol Use: None Hx Recreational Drug Use: No Drugs: None Hx Prescription Drug Abuse: No - Advance Directive Resuscitation Status: Full Code Surrogate healthcare decision maker:: Pj Paz Family History Family History: CAD, DM, Malignancy, Other - Macular degeneration, cataracts, blindness Parental Family History Reviewed: Yes Children Family History Reviewed: No Sibling(s) Family History Reviewed.: Yes Medication/Allergy Home Medications: Latanoprost [Xalatan 0.005% Oph Soln 2.5 ml] 1 drop BTH_EYE QPM 11/28/15 Ondansetron [Zofran Odt 4 mg Tablet] 1 - 2 tab PO Q4HP PRN #15 tab.rapdis 11/27/19 Allergies/Adverse Reactions: No Known Allergies Allergy (Verified 03/31/19 16:21) Review of Systems Constitutional: PRESENT: as per HPI, anorexia, weakness. ABSENT: chills, fever(s) Eyes: ABSENT: visual disturbances, other - Eye pain Ears: ABSENT: hearing changes, other Nose, Mouth, and Throat: ABSENT: headache(s), sore throat Cardiovascular: ABSENT: chest pain, palpitations Respiratory: ABSENT: cough, dyspnea Gastrointestinal: PRESENT: nausea, vomiting. ABSENT: abdominal pain, constipation, diarrhea, hematemesis Genitourinary: ABSENT: dysuria, hematuria Musculoskeletal: PRESENT: other - Joint pains due to arthritis. ABSENT: joint swelling Integumentary: ABSENT: pruritus, rash Neurological: ABSENT: confusion, convulsions, focal weakness, memory loss, syncope Psychiatric: ABSENT: anxiety, depression Endocrine: ABSENT: cold intolerance, heat intolerance Hematologic/Lymphatic: ABSENT: easy bleeding, easy bruising Allergic/Immunologic: ABSENT: seasonal rhinorrhea Physical Exam Vital Signs: Temp Pulse Resp BP Pulse Ox 98.1 F 104 H 18 105/60 97 12/25/19 16:46 12/25/19 16:46 12/25/19 16:46 12/25/19 22:35 12/26/19 00:00 Intake & Output 12/24/19 12/25/19 12/26/19 23:59 23:59 23:59 Intake Total 1000 Balance 1000 Weight 40.8 kg General appearance: PRESENT: no acute distress, cooperative, thin - Cachectic Head exam: PRESENT: atraumatic, normocephalic Eye exam: PRESENT: conjunctiva pink. ABSENT: conjunctival injection, scleral icterus Ear exam: PRESENT: normal external ear exam. ABSENT: bleeding, drainage Mouth exam: PRESENT: dry mucosa, neck supple Neck exam: ABSENT: thyromegaly, tracheal deviation Respiratory exam: PRESENT: clear to auscultation alejandro, symmetrical, unlabored Cardiovascular exam: PRESENT: RRR. ABSENT: clicks, gallop, rubs Pulses: PRESENT: normal radial pulses, normal dorsalis pedis pul Vascular exam: PRESENT: normal capillary refill. ABSENT: pallor GI/Abdominal exam: PRESENT: normal bowel sounds, soft. ABSENT: tenderness Extremities exam: ABSENT: joint swelling, pedal edema Musculoskeletal exam: ABSENT: deformity, dislocation Neurological exam: PRESENT: alert, oriented to person, oriented to place, oriented to time, oriented to situation, CN II-XII grossly intact. ABSENT: motor sensory deficit Psychiatric exam: PRESENT: appropriate affect, normal mood Skin exam: PRESENT: dry, intact, warm. ABSENT: jaundice, rash, urticaria Results Laboratory Results: 12/25/19 17:54 12/25/19 17:54 12/25/19 12/25/19 12/25/19 17:54 17:54 17:54 WBC 14.5 H RBC 4.32 Hgb 12.5 Hct 36.2 MCV 84 MCH 28.9 MCHC 34.4 RDW 13.4 Plt Count 384 Seg Neutrophils % 80.4 H Sodium 128.6 L Potassium 2.7 L* Chloride 75 L Carbon Dioxide 26 Anion Gap 28 H BUN 21 H Creatinine 1.41 H Est GFR ( Amer) 46 L Glucose 84 Lactic Acid Calcium 9.6 Magnesium 2.0 Total Bilirubin 1.0 AST 28 Alkaline Phosphatase 92 Total Protein 7.2 Albumin 4.6 Lipase 289.8 TSH 1.59 12/25/19 12/25/19 19:00 22:13 WBC RBC Hgb Hct MCV MCH MCHC RDW Plt Count Seg Neutrophils % Sodium Potassium Chloride Carbon Dioxide Anion Gap BUN Creatinine Est GFR ( Amer) Glucose Lactic Acid 2.1 1.1 Calcium Magnesium Total Bilirubin AST Alkaline Phosphatase Total Protein Albumin Lipase TSH Impressions: Abdomen/Pelvis CT 12/25/19 17:23 IMPRESSION: 1. Thickened appearance about the ascending and transverse colon and a noncontiguous pattern. This could be due to underdistention and peristalsis or colitis. Clinical correlation is recommended. 2. Cholelithiasis without gross CT evidence of acute cholecystitis, however ultrasound or HIDA scan could be performed as clinically directed. TECHNICAL DOCUMENTATION: Quality ID # 436: Final reports with documentation of one or more dose reduction techniques (e.g., Automated exposure control, adjustment of the mA and/or kV according to patient size, use of iterative reconstruction technique) copyright 2011 [employer] All Rights Reserved Abdomen Ultrasound 12/25/19 21:21 IMPRESSION: 1. Gallbladder is difficult to visualize but does appear to have gallstones. No evidence of acute cholecystitis. 2. No hydronephrosis. No acute process is seen in the right upper quadrant. Assessment and Plan - Diagnosis (1) Weight loss, abnormal Is this a current diagnosis for this admission?: Yes (2) Generalized weakness Is this a current diagnosis for this admission?: Yes (3) Acute kidney injury Is this a current diagnosis for this admission?: Yes (4) Nausea and vomiting Qualifiers: Vomiting type: unspecified Vomiting Intractability: non-intractable Qualified Code(s): R11.2 - Nausea with vomiting, unspecified Is this a current diagnosis for this admission?: Yes (5) Anorexia Is this a current diagnosis for this admission?: Yes (6) Hypokalemia Is this a current diagnosis for this admission?: Yes - Plan Summary Summary: Patient will be admitted to the medical floor where she received routine suppo rtive and symptomatic care. She will be treated with IV fluids utilizing normal saline with 20 mEq of KCl per liter at 167 mL/h. Serial metabolic profiles will be obtained to evaluate the progress of treatment. Serial lactic acid levels will be obtained. Serial CBCs will be obtained. Dr. Sanchez will be consulted per his request. She will receive morphine sulfate 2 to 4 mg IV every 2 hours a s needed for pain. She will receive Ativan 1 mg IV every 4 hours as needed for anxiety or restlessness. She will receive Reglan 5 mg before meals and at bedtime as initial therapy for her nausea and vomiting. She will be treated with a cardiac diet as tolerated. A registered dietitian consultation will be obtained. A case management consultation will be obtained. Additional laboratory and/or radiographic evaluations will be obtained as needed. - Time Time Spent with patient: 15-24 minutes Medications reviewed and adjusted accordingly: Yes Anticipated Discharge Disposition: Home with Home Health Anticipated Discharge Timeframe: Undetermined - Inpatient Certification Based on my medical assessment, after consideration of the patient's comorbidit ies, presenting symptoms, or acuity I expect that the services needed warrant INPATIENT care.: Yes I certify that my determination is in accordance with my understanding of Me nolan's requirements for reasonable and necessary INPATIENT services [42 CFR 412.3e].: Yes Medical Necessity: Need Close Monitoring Due to Risk of Patient Decompensation, Need For IV Fluids, Need For Continuous Telemetry Monitoring
[2019-12-26] MEDS ORDERED: HEPARIN SOD (PORCINE) 5,000 UNIT/ML 1 ML VIAL SUBCUT SCH (06:00)
[2019-12-26] MEDS: METOCLOPRAMIDE HCL INJ/PF 10 MG/2 ML SDV IV SCH ×4 (08:27→22:06)
[2019-12-26] MEDS: DRONABINOL 2.5 MG CAPSULE PO SCH ×3 (08:43→16:21)
[2019-12-26 09:21] LABS: APPEARANCE,URINE CLEAR; BILIRUBIN,URINE NEGATIVE (NEGATIVE); COLOR,URINE STRAW; GLUCOSE, URINE NEGATIVE (NEGATIVE); KETONES,URINE 20 mg/dL (NEGATIVE); PROTEIN,URINE NEGATIVE (NEGATIVE); URINE SPECIFIC GRAVITY 1.013; UROBILINOGEN,URINE NEGATIVE mg/dL (<2.0)
[2019-12-26] MEDS ORDERED: ENOXAPARIN SODIUM INJ 40 MG/0.4 ML DISP.SYRIN SUBCUT SCH (10:00)
[2019-12-26] MEDS ORDERED: FAMOTIDINE 20 MG TABLET PO SCH (10:00)
[2019-12-26] MEDS ORDERED: THIAMINE HCL 100 MG, FOLIC ACID 1 MG in NORMAL SALINE 250 ML IV ONE (10:00)
[2019-12-26 10:02] LABS: PHOSPHORUS 2.6 mg/dL (2.5-4.5)
[2019-12-26] MEDS: FAMOTIDINE INJ/PF 20 MG/2 ML SDV IV SCH ×2 (11:19→22:06)
[2019-12-26] MEDS: DOCUSATE SODIUM 100 MG/10 ML UDC PO SCH ×2 (11:19→18:22)
[2019-12-26] MEDS: POLYETHYLENE GLYCOL 3350 POWDER 17 GM/1 PACKET PO SCH (11:20)
[2019-12-26] MEDS: ENOXAPARIN SODIUM INJ 30 MG/0.3 ML DISP.SYRIN SUBCUT SCH (11:38)
--- NOTE | 2019-12-26 12:24 | PDOC CONSULTATION ---
Consultation Consult Date: 12/26/19 Attending physician:: CARLIN OCHOA Provider Consulted: CASTRO AN Consult reason:: Patient with history of gum cancer here with nausea vomiting, failure to thrive History of Present Illness Admission Date/PCP: 12/26/19 00:33 Patient complains of: Weakness, nausea History of Present Illness: DAVE PAZ is a 64 year old female new to our oncology clinic, I just met her yesterday afternoon, she has history of gum cancer. 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 Unfortunately since surgery she has not been able to eat or drink much, has lost about 30 pounds. When I saw her she was wheelchair-bound and was very cachectic, listless. We referred her to the ER, there she was found to be in acute renal failure with a creatinine of 1.4, severely hypokalemic hyponatremic, and overall appeared to be doing very poorly. She had CT of the abdomen pelvis which showed thickening throughout the colon, abdominal ultrasound was largely unremarkable. She notes that at home when she tried to eat about 30 minutes later she would throw it all up. Fluids would do the same thing. She did not have odynophagia, and does not really have pain in her jaw. Past Medical History Cardiac Medical History: Reports: Coronary Artery Disease, Hyperlipidema Denies: Myocardial Infarction, Hypertension Pulmonary Medical History: Denies: Asthma, Bronchitis, Chronic Obstructive Pulmonary Disease (COPD), [place] EENT Medical History: Reports: Cataracts, Eyes - Glaucoma, corrective lenses Denies: Ears - Hearing aid Neurological Medical History: Denies: Hemorrhagic CVA, Ischemic CVA, Seizures Endocrine Medical History: Denies: Diabetes Mellitus Type 1, Diabetes Mellitus Type 2, Hyperthyroidism, Hypothyroidism, Obesity Renal/ Medical History: Denies: Chronic Kidney Disease, Nephrolithiasis Malignancy Medical History: Reports: Other - Oral cancer GI Medical History: Denies: Cirrhosis, Crohn's Disease, Hepatitis, Hiatal Hernia, Peptic Ulcer Disease, Ulcerative Colitis Musculoskeltal Medical History: Reports: Arthritis Denies: Fibromyalgia Skin Medical History: Denies: Eczema, Psoriasis Psychiatric Medical History: Denies: Alcohol Dependency, Depression, Substance Abuse, Tobacco Dependency Traumatic Medical History: Reports: None Hematology: Denies: Anemia, Sickle Cell Disease, Bleeding Tendencies Infectious Medical History: Reports: None Past Surgical History Past Surgical History: Reports: Tonsillectomy, Tubal Ligation, Other - Oral surgery x2 for gingival carcinoma Denies: Amputation, Hysterectomy, Mastectomy, Pacemaker Social History Information Source: Patient Lives with: Spouse/Significant other Smoking Status: Former Smoker Electronic Cigarette use?: No Frequency of Alcohol Use: None Hx Recreational Drug Use: No Drugs: None Hx Prescription Drug Abuse: No - Advance Directive Resuscitation Status: Full Code Family History Family History: CAD, DM, Malignancy, Other - Macular degeneration, cataracts, blindness Parental Family History Reviewed: Yes Children Family History Reviewed: Yes Sibling(s) Family History Reviewed.: Yes Medication/Allergy Home Medications: Latanoprost [Xalatan 0.005% Oph Soln 2.5 ml] 1 drop BTH_EYE QPM 11/28/15 Allergies/Adverse Reactions: No Known Allergies Allergy (Verified 03/31/19 16:21) Review of Systems Constitutional: PRESENT: anorexia, weakness, weight loss Eyes: ABSENT: visual disturbances Ears: ABSENT: hearing changes Nose, Mouth, and Throat: ABSENT: as per HPI, headache(s), mouth pain, sore throat, vertigo, other Cardiovascular: ABSENT: chest pain, dyspnea on exertion, edema, orthropnea, palpitations Gastrointestinal: PRESENT: constipation, nausea, vomiting Neurological: PRESENT: weakness Psychiatric: PRESENT: depression Physical Exam Vital Signs: Temp Pulse Resp BP Pulse Ox 98.3 F 72 12 100/55 L 100 12/26/19 09:02 12/26/19 09:02 12/26/19 09:02 12/26/19 09:02 12/26/19 09:02 Intake & Output 12/25/19 12/26/19 12/27/19 06:59 06:59 05:59 Intake Total 1425 1575 Output Total 800 Balance 625 1575 Weight 44 kg 44 kg General appearance: PRESENT: no acute distress, well-developed, well-nourished Head exam: PRESENT: atraumatic, normocephalic Eye exam: PRESENT: conjunctiva pink, EOMI, PERRLA. ABSENT: scleral icterus Ear exam: PRESENT: normal external ear exam Mouth exam: PRESENT: moist, tongue midline Neck exam: ABSENT: carotid bruit, JVD, lymphadenopathy, thyromegaly Respiratory exam: PRESENT: clear to auscultation alejandro. ABSENT: rales, rhonchi, wheezes Cardiovascular exam: PRESENT: RRR. ABSENT: diastolic murmur, rubs, systolic murmur Pulses: PRESENT: normal dorsalis pedis pul Vascular exam: PRESENT: normal capillary refill GI/Abdominal exam: PRESENT: normal bowel sounds, soft. ABSENT: distended, guarding, mass, organolmegaly, rebound, tenderness Rectal exam: PRESENT: deferred Extremities exam: PRESENT: full ROM. ABSENT: calf tenderness, clubbing, pedal edema Neurological exam: PRESENT: alert, awake, oriented to person, oriented to place, oriented to time, oriented to situation, CN II-XII grossly intact. ABSENT: motor sensory deficit Psychiatric exam: PRESENT: appropriate affect, normal mood. ABSENT: homicidal ideation, suicidal ideation Skin exam: PRESENT: dry, intact, warm. ABSENT: cyanosis, rash Results Laboratory Results: 12/25/19 17:54 12/25/19 17:54 12/25/19 12/25/19 12/25/19 17:54 17:54 17:54 WBC 14.5 H RBC 4.32 Hgb 12.5 Hct 36.2 MCV 84 MCH 28.9 MCHC 34.4 RDW 13.4 Plt Count 384 Seg Neutrophils % 80.4 H Sodium 128.6 L Potassium 2.7 L* Chloride 75 L Carbon Dioxide 26 Anion Gap 28 H BUN 21 H Creatinine 1.41 H Est GFR ( Amer) 46 L Glucose 84 Lactic Acid Calcium 9.6 Phosphorus Magnesium 2.0 Total Bilirubin 1.0 AST 28 Alkaline Phosphatase 92 Total Protein 7.2 Albumin 4.6 Lipase 289.8 TSH 1.59 Free T4 Free T3 pg/mL Urine Color Urine Appearance Urine pH Ur Specific [place] Urine Protein Urine Glucose (UA) Urine Ketones Urine Blood Urine RBC (Auto) 12/25/19 12/25/19 12/25/19 17:54 19:00 22:13 WBC RBC Hgb Hct MCV MCH MCHC RDW Plt Count Seg Neutrophils % Sodium Potassium Chloride Carbon Dioxide Anion Gap BUN Creatinine Est GFR ( Amer) Glucose Lactic Acid 2.1 1.1 Calcium Phosphorus Magnesium Total Bilirubin AST Alkaline Phosphatase Total Protein Albumin Lipase TSH 1.61 Free T4 1.74 Free T3 pg/mL 1.68 L Urine Color Urine Appearance Urine pH Ur Specific [place] Urine Protein Urine Glucose (UA) Urine Ketones Urine Blood Urine RBC (Auto) 12/26/19 12/26/19 08:15 09:13 WBC RBC Hgb Hct MCV MCH MCHC RDW Plt Count Seg Neutrophils % Sodium Potassium Chloride Carbon Dioxide Anion Gap BUN Creatinine Est GFR ( Amer) Glucose Lactic Acid Calcium Phosphorus 2.6 Magnesium 1.7 Total Bilirubin AST Alkaline Phosphatase Total Protein Albumin Lipase TSH Free T4 Free T3 pg/mL Urine Color STRAW Urine Appearance CLEAR Urine pH 6.0 Ur Specific [place] 1.013 Urine Protein NEGATIVE Urine Glucose (UA) NEGATIVE Urine Ketones 20 H Urine Blood SMALL H Urine RBC (Auto) 1 Impressions: Abdomen/Pelvis CT 12/25/19 17:23 IMPRESSION: 1. Thickened appearance about the ascending and transverse colon and a noncontiguous pattern. This could be due to underdistention and peristalsis or colitis. Clinical correlation is recommended. 2. Cholelithiasis without gross CT evidence of acute cholecystitis, however ultrasound or HIDA scan could be performed as clinically directed. TECHNICAL DOCUMENTATION: Quality ID # [id number]: Final reports with documentation of one or more dose reduction techniques (e.g., Automated exposure control, adjustment of the mA and/or kV according to patient size, use of iterative reconstruction technique) copyright 2011 [employer]- All Rights Reserved Abdomen Ultrasound 12/25/19 21:21 IMPRESSION: 1. Gallbladder is difficult to visualize but does appear to have gallstones. No evidence of acute cholecystitis. 2. No hydronephrosis. No acute process is seen in the right upper quadrant. Status: Image reviewed by me Assessment & Plan - Diagnosis (1) Nausea and vomiting Qualifiers: Vomiting type: unspecified Vomiting Intractability: non-intractable Qualified Code(s): R11.2 - Nausea with vomiting, unspecified Is this a current diagnosis for this admission?: Yes Plan: I believe she probably has something like an ileus ongoing that is causing this. She does have Marinol on board. (2) Generalized weakness Is this a current diagnosis for this admission?: Yes Plan: Likely secondary to poor p.o. intake and dehydration (3) Acute kidney injury Is this a current diagnosis for this admission?: Yes Plan: Secondary to dehydration, continue with IV fluids (4) Ileus, postoperative Is this a current diagnosis for this admission?: Yes Plan: I believe she probably has a postoperative ileus, but I have asked surgery to give their opinion to see what they think about the CT and ultimately if she is unable to eat, which should be a good candidate for G-tube placement. (5) Gum cancer Is this a current diagnosis for this admission?: Yes Plan: Stage I, cancer, no evidence of distant disease. Her above issues are most certainly postsurgically caused. - Time Time Spent: Greater than 70 Minutes - Inpatient Certification Based on my medical assessment, after consideration of the patient's comorbidities, presenting symptoms, or acuity I expect that the services needed warrant INPATIENT care.: Yes I certify that my determination is in accordance with my understanding of Medicare's requirements for reasonable and necessary INPATIENT services [42 CFR 412.3e].: Yes Medical Necessity: Need For IV Fluids, Need for Surgery, Risk of Complication if Not Cared For in Hospital
--- NOTE | 2019-12-26 16:04 | PDOC CONSULTATION ---
Consultation Consult Date: 12/26/19 Attending physician:: CASTRO AN Provider Consulted: BI QUINTERO Consult reason:: malnutrition. History of Present Illness Admission Date/PCP: 12/26/19 00:33 Patient complains of: nausea, vomiting, unable to hold down food. Weakness History of Present Illness: DAVE PAZ is a 64 year old femalewith stage II mandibular cancer to the emergency department from Dr. An's office with complaints of nausea, constipation, failure to thrive. She has not been able to have a bowel movement since middle october. She is also been vomiting nearly every single day since the beginning of the month. She went and saw Dr. An today and he sent her to the emergency department for further evaluation. evaluate her for ileus. Patient states she has not been able to hold down any solid foods or f luids in the past several days. Denies any fevers or chills. She has had a significant weight loss from about 138lbs at the beginning of October to 89 pounds today. On brief medical screening exam, cachectic 64-year-old leaned over and hunched in the wheelchair. She is obviously very weak. She is nontender to palpation of her abdomen. Advised charge nurse of the patient. She will get her into bed soon as possible. Past Medical History Cardiac Medical History: Reports: Coronary Artery Disease, Hyperlipidema Denies: Myocardial Infarction, Hypertension Pulmonary Medical History: Denies: Asthma, Bronchitis, Chronic Obstructive Pulmonary Disease (COPD), Pneumonia EENT Medical History: Reports: Cataracts, Eyes - Glaucoma, corrective lenses Denies: Ears - Hearing aid Neurological Medical History: Denies: Hemorrhagic CVA, Ischemic CVA, Seizures Endocrine Medical History: Denies: Diabetes Mellitus Type 1, Diabetes Mellitus Type 2, Hyperthyroidism, Hypothyroidism, Obesity Renal/ Medical History: Denies: Chronic Kidney Disease, Nephrolithiasis Malignancy Medical History: Reports: Other - Oral cancer GI Medical History: Denies: Cirrhosis, Crohn's Disease, Hepatitis, Hiatal Hernia, Peptic Ulcer Disease, Ulcerative Colitis Musculoskeltal Medical History: Reports: Arthritis Denies: Fibromyalgia Skin Medical History: Denies: Eczema, Psoriasis Psychiatric Medical History: Denies: Alcohol Dependency, Depression, Substance Abuse, Tobacco Dependency Traumatic Medical History: Reports: None Hematology: Denies: Anemia, Sickle Cell Disease, Bleeding Tendencies Infectious Medical History: Reports: None Past Surgical History Past Surgical History: Reports: Tonsillectomy, Tubal Ligation, Other - Oral surgery x2 for gingival carcinoma Denies: Amputation, Hysterectomy, Mastectomy, Pacemaker Social History Lives with: Spouse/Significant other Smoking Status: Former Smoker Electronic Cigarette use?: No Frequency of Alcohol Use: None Hx Recreational Drug Use: No Drugs: None Hx Prescription Drug Abuse: No - Advance Directive Resuscitation Status: Full Code Family History Family History: CAD, DM, Malignancy, Other - Macular degeneration, cataracts, blindness Parental Family History Reviewed: No Children Family History Reviewed: NA Sibling(s) Family History Reviewed.: NA Medication/Allergy Home Medications: Latanoprost [Xalatan 0.005% Oph Soln 2.5 ml] 1 drop BTH_EYE QPM 11/28/15 Allergies/Adverse Reactions: No Known Allergies Allergy (Verified 03/31/19 16:21) Physical Exam Vital Signs: Temp Pulse Resp BP Pulse Ox 98.4 F 82 16 95/54 L 100 12/26/19 11:17 12/26/19 14:00 12/26/19 11:17 12/26/19 11:17 12/26/19 11:17 Intake & Output 12/25/19 12/26/19 12/27/19 06:59 06:59 05:59 Intake Total 1425 1946.2 Output Total 800 650 Balance 625 1296.2 Weight 44 kg 44 kg General appearance: PRESENT: no acute distress Head exam: PRESENT: normocephalic Eye exam: PRESENT: EOMI, PERRLA Ear exam: PRESENT: normal external ear exam Mouth exam: PRESENT: dry mucosa Neck exam: PRESENT: full ROM Respiratory exam: PRESENT: clear to auscultation alejandro Cardiovascular exam: PRESENT: RRR Pulses: PRESENT: normal femoral pulses, normal dorsalis pedis pul Vascular exam: PRESENT: normal capillary refill Breast: PRESENT: Normal GI/Abdominal exam: PRESENT: soft Rectal exam: PRESENT: deferred Extremities exam: PRESENT: full ROM Musculoskeletal exam: PRESENT: full ROM Neurological exam: PRESENT: awake, oriented to person, other - listless, falls asleep during questioning, difficulty iwth short term memoray Skin exam: PRESENT: dry Results Laboratory Results: 12/25/19 17:54 12/25/19 17:54 12/25/19 12/25/1920 17:54 17:54 17:54 WBC 14.5 H RBC 4.32 Hgb 12.5 Hct 36.2 MCV 84 MCH 28.9 MCHC 34.4 RDW 13.4 Plt Count 384 Seg Neutrophils % 80.4 H Sodium 128.6 L Potassium 2.7 L* Chloride 75 L Carbon Dioxide 26 Anion Gap 28 H BUN 21 H Creatinine 1.41 H Est GFR ( Amer) 46 L Glucose 84 Lactic Acid Calcium 9.6 Phosphorus Magnesium 2.0 Total Bilirubin 1.0 AST 28 Alkaline Phosphatase 92 Total Protein 7.2 Albumin 4.6 Lipase 289.8 TSH 1.59 Free T4 Free T3 pg/mL Urine Color Urine Appearance Urine pH Ur Specific [place] Urine Protein Urine Glucose (UA) Urine Ketones Urine Blood Urine RBC (Auto) 12/25/19 12/25/19 12/25/19 17:54 19:00 22:13 WBC RBC Hgb Hct MCV MCH MCHC RDW Plt Count Seg Neutrophils % Sodium Potassium Chloride Carbon Dioxide Anion Gap BUN Creatinine Est GFR ( Amer) Glucose Lactic Acid 2.1 1.1 Calcium Phosphorus Magnesium Total Bilirubin AST Alkaline Phosphatase Total Protein Albumin Lipase TSH 1.61 Free T4 1.74 Free T3 pg/mL 1.68 L Urine Color Urine Appearance Urine pH Ur Specific [place] Urine Protein Urine Glucose (UA) Urine Ketones Urine Blood Urine RBC (Auto) 12/26/19 12/26/19 08:15 09:13 WBC RBC Hgb Hct MCV MCH MCHC RDW Plt Count Seg Neutrophils % Sodium Potassium Chloride Carbon Dioxide Anion Gap BUN Creatinine Est GFR ( Amer) Glucose Lactic Acid Calcium Phosphorus 2.6 Magnesium 1.7 Total Bilirubin AST Alkaline Phosphatase Total Protein Albumin Lipase TSH Free T4 Free T3 pg/mL Urine Color STRAW Urine Appearance CLEAR Urine pH 6.0 Ur Specific [place] 1.013 Urine Protein NEGATIVE Urine Glucose (UA) NEGATIVE Urine Ketones 20 H Urine Blood SMALL H Urine RBC (Auto) 1 Impressions: Abdomen/Pelvis CT 12/25/19 17:23 IMPRESSION: 1. Thickened appearance about the ascending and transverse colon and a noncontiguous pattern. This could be due to underdistention and peristalsis or colitis. Clinical correlation is recommended. 2. Cholelithiasis without gross CT evidence of acute cholecystitis, however ultrasound or HIDA scan could be performed as clinically directed. TECHNICAL DOCUMENTATION: Quality ID # [id number]: Final reports with documentation of one or more dose reduction techniques (e.g., Automated exposure control, adjustment of the mA and/or kV according to patient size, use of iterative reconstruction technique) copyright 2011 [employer]- All Rights Reserved Abdomen Ultrasound 12/25/19 21:21 IMPRESSION: 1. Gallbladder is difficult to visualize but does appear to have gallstones. No evidence of acute cholecystitis. 2. No hydronephrosis. No acute process is seen in the right upper quadrant. Assessment & Plan - Plan Summary Plan Summary: 65 y/o female s/p gum surgery for stage 1 gingival carcinoma was then discharged home and instructed to take only clear liquids this continued for approx 3 wks when she was able to start po full lilquids pt lost approximately 50lbs in last 6wks. now feels nauseated with any food and has not had a bm in approx 1 mo presents listless, weak, unable to hold down any food and most liquids ct obtained in er yesterday show no sig abnormality except constipat;ion and sl thickened ascending colon consult to surgery for poss peg tube pt denies being able to eat and has no pain with chewing or swallowing has no abd pain impression- sever malnutrition and hypochloremia and hyponatremia and hypokalemia also I suspect she has low thiamine and b12, folate levels early Wernicke's syndrome should be considered I dont think a peg tube is the best choice recommend, thiamine, folate, vitamin replacement correct electrolyte abnormalities picc line for tpn and slow refeeding. have discussed case with Dr AN.
--- NOTE | 2019-12-26 17:01 | PDOC PROGRESS REPORT ---
Subjective Progress Note for:: 12/26/19 Subjective:: DAVE PAZ is a 64 year old female who presented to the emergency room from Dr. Sanchez's office with a 2-month history of weight loss. 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 She underwent 2 surgical procedures and was reported as resected for cure. Since that time she has been gradually losing weight as she currently weighs 89 pounds. Her weight loss has been accompanied by progressive generalized weakness and has been associated with decreased appetite and chronic nausea with vomiting. She denies other associated or accompanying signs and symptoms. She denies prior similar episodes. She has not identified any additional aggravating or ameliorating factors for her weight loss. In the emergency room she was found to be cachectic and was noted to have hypokalemia, a mildly elevated white blood cell count, and minimally elevated lactic acid and an acute kidney injury. She was subsequently admitted to the hospital for further evaluation and treatment with Dr. Sanchez to be consulted at his direction. D1 hospital stay. 12/26/19. She was seen and examined at bedside. History reviewed from Dr. Greenwood notes. She still complains of nausea and vomiting whenever she eats but denies any abdominal pain or dysphagia. She has not had a BM for weeks now which is not surprising given that she has not eaten anything for several weeks. Dr. Silveira consulted for possible PEG tube placement for nutrition but upon his review of her case, TPN might be the best option at least temporarily to feed her. PICC line insertion ordered for saturday for TPN. Reason For Visit: WEIGHT LOSS Physical Exam Vital Signs: Temp Pulse Resp BP Pulse Ox 98.6 F 68 16 90/49 L 98 12/26/19 15:55 12/26/19 15:55 12/26/19 15:55 12/26/19 15:55 12/26/19 15:55 Intake & Output 12/25/19 12/26/19 12/27/19 06:59 06:59 05:59 Intake Total 1425 2946.2 Output Total 800 650 Balance 625 2296.2 Weight 44 kg 44 kg General appearance: PRESENT: no acute distress, cooperative, thin - cachectic, other - physicaly deconditioned Head exam: PRESENT: atraumatic, normocephalic Eye exam: PRESENT: EOMI, PERRLA Mouth exam: PRESENT: dry mucosa, other - well healed scar right lower mandible from recent gum cancer resection. She has not teeth on her right lower jaw area, no obvious signs of infection Throat exam: ABSENT: post pharyngeal erythema, tonsillar erythema Neck exam: PRESENT: full ROM Respiratory exam: PRESENT: clear to auscultation alejandro, symmetrical, unlabored Cardiovascular exam: PRESENT: RRR, +S1, +S2 Pulses: PRESENT: +2 pedal pulses bilateral GI/Abdominal exam: PRESENT: hypoactive bowel sounds, soft. ABSENT: distended, organolmegaly, rebound, tenderness Extremities exam: PRESENT: full ROM Musculoskeletal exam: PRESENT: full ROM Neurological exam: PRESENT: alert, awake, oriented to person, oriented to place, oriented to time, oriented to situation Skin exam: PRESENT: normal color Results Laboratory Results: 12/25/19 17:54 12/25/19 17:54 12/25/19 12/25/19 12/25/19 17:54 17:54 17:54 WBC 14.5 H RBC 4.32 Hgb 12.5 Hct 36.2 MCV 84 MCH 28.9 MCHC 34.4 RDW 13.4 Plt Count 384 Seg Neutrophils % 80.4 H Sodium 128.6 L Potassium 2.7 L* Chloride 75 L Carbon Dioxide 26 Anion Gap 28 H BUN 21 H Creatinine 1.41 H Est GFR ( Amer) 46 L Glucose 84 Lactic Acid Calcium 9.6 Phosphorus Magnesium 2.0 Total Bilirubin 1.0 AST 28 Alkaline Phosphatase 92 Total Protein 7.2 Albumin 4.6 Lipase 289.8 TSH 1.59 Free T4 Free T3 pg/mL Urine Color Urine Appearance Urine pH Ur Specific [place] Urine Protein Urine Glucose (UA) Urine Ketones Urine Blood Urine RBC (Auto) 12/25/19 12/25/19 12/25/19 17:54 19:00 22:13 WBC RBC Hgb Hct MCV MCH MCHC RDW Plt Count Seg Neutrophils % Sodium Potassium Chloride Carbon Dioxide Anion Gap BUN Creatinine Est GFR ( Amer) Glucose Lactic Acid 2.1 1.1 Calcium Phosphorus Magnesium Total Bilirubin AST Alkaline Phosphatase Total Protein Albumin Lipase TSH 1.61 Free T4 1.74 Free T3 pg/mL 1.68 L Urine Color Urine Appearance Urine pH Ur Specific [place] Urine Protein Urine Glucose (UA) Urine Ketones Urine Blood Urine RBC (Auto) 12/26/19 12/26/19 08:15 09:13 WBC RBC Hgb Hct MCV MCH MCHC RDW Plt Count Seg Neutrophils % Sodium Potassium Chloride Carbon Dioxide Anion Gap BUN Creatinine Est GFR ( Amer) Glucose Lactic Acid Calcium Phosphorus 2.6 Magnesium 1.7 Total Bilirubin AST Alkaline Phosphatase Total Protein Albumin Lipase TSH Free T4 Free T3 pg/mL Urine Color STRAW Urine Appearance CLEAR Urine pH 6.0 Ur Specific [place] 1.013 Urine Protein NEGATIVE Urine Glucose (UA) NEGATIVE Urine Ketones 20 H Urine Blood SMALL H Urine RBC (Auto) 1 Impressions: Abdomen/Pelvis CT 12/25/19 17:23 IMPRESSION: 1. Thickened appearance about the ascending and transverse colon and a noncontiguous pattern. This could be due to underdistention and peristalsis or colitis. Clinical correlation is recommended. 2. Cholelithiasis without gross CT evidence of acute cholecystitis, however ultrasound or HIDA scan could be performed as clinically directed. TECHNICAL DOCUMENTATION: Quality ID # 436: Final reports with documentation of one or more dose reduction techniques (e.g., Automated exposure control, adjustment of the mA and/or kV according to patient size, use of iterative reconstruction technique) copyright 2010 [employer]- All Rights Reserved Abdomen Ultrasound 12/25/19 21:21 IMPRESSION: 1. Gallbladder is difficult to visualize but does appear to have gallstones. No evidence of acute cholecystitis. 2. No hydronephrosis. No acute process is seen in the right upper quadrant. 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 This could be due to underdistention and peristalsis or colitis. Cholelithiasis without gross evidence of acute cholecystitis. - BMI 16 - Na 128.6, K 2.7, Crea 1.4 - she is at risk for refeeding syndrome - Thiamine, B12, Vitamin A iron studies ordered - will check Ma, PO4 daily especially when TPN is started - Started on IV fluids D5 half normal - IV thiamine and folate given - Shrink Pit Operator consulted - Surgery consulted. Suggest PICC line and TPN for now. Please refer to surgery notes - PT/OT - Dr. Sanchez consulted (2) Severe protein-calorie malnutrition Is this a current diagnosis for this admission?: Yes Plan: - 2/2 poor oral intake - at risk for refeeding syndrome - dietary consult - TPN for nutrition per surgery recs - CMP, Mg and PO4 levels daily (3) Acute kidney injury Is this a current diagnosis for this admission?: Yes Plan: - Crea 1.41 unknown baseline - likely pre renal from poor oral intake - continue hydration with D5 half normal - will monitor crea (4) Gum cancer Is this a current diagnosis for this admission?: Yes Plan: - dx 6 weeks ago well-differentiated squamous cell carcinoma, p16 positive - s/p partial mandibulectomy, alveolectomy, with flap from lower thigh - no residual disease, so 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 Did not receive chemo - dr. Sanchez following (5) Weight loss, abnormal Is this a current diagnosis for this admission?: Yes Plan: - 30 Ib weight loss 6 weeks unintentional - plan for TPN for nutrition atleast for the time being (6) Hypokalemia Is this a current diagnosis for this admission?: Yes Plan: K 2.8 - replacing via IV - will monitor (7) Hyponatremia Is this a current diagnosis for this admission?: Yes Plan: - Na 128.6 - likely 2/2 dehydration - on D5 hafl normal - will repeat BMP later today (8) Cholelithiasis Qualifiers: Cholelithiasis location: gallbladder Cholecystitis presence: without cholecystitis Biliary obstruction: without biliary obstruction Qualified Code(s): K80.20 - Calculus of gallbladder without cholecystitis without obstruction Is this a current diagnosis for this admission?: Yes Plan: - incidental finding on CT abdomen - no abdominal pain - will monitor - Plan Summary Summary: . - Time Time Spent with patient: 35 or more minutes Anticipated Discharge Disposition: Home, Self Care Anticipated Discharge Timeframe: to be determined
[2019-12-27] MEDS: DEXTROSE 5%-1/2 NORMAL SALINE 1,000 ML IV PRN ×2 (04:51→15:57)
[2019-12-27] MEDS ORDERED: INFLUENZA QUAD (6MOS+) 2020-21 VAC 0.5 ML SYR IM ONE (08:00)
[2019-12-27 08:08] LABS: ABSOLUTE RETICS # 0.026 10^6/uL (0.028-0.122); HEMATOCRIT 27.5 % (36.0-47.0); MEAN CORPUSCULAR HGB CONC 35.9 g/dL (32.0-36.0); MEAN CORPUSCULAR VOLUME 83 fl (80-97); PLATELET COUNT 233 10^3/uL (150-450); RED CELL DISTRIBUTION WIDTH 13.4 % (11.5-14.0); RETICULOCYTE COUNT (AUTO) 0.78 % (0.66-2.85); WHITE BLOOD COUNT 8.6 10^3/uL (4.0-10.5)
[2019-12-27 08:10] LABS: HEMOGLOBIN 9.9 g/dL (12.0-15.5)
[2019-12-27 08:17] LABS: ALBUMIN 2.5 g/dL (3.5-5.0); ALKALINE PHOSPHATASE 52 U/L (38-126); ANION GAP 9 (5-19); ASPARTATE AMINO TRANSFERASE 20 U/L (14-36); BILIRUBIN,DIRECT 0.1 mg/dL (0.0-0.4); BILIRUBIN,TOTAL 0.3 mg/dL (0.2-1.3); BLOOD UREA NITROGEN 10 mg/dL (7-20); CALCIUM 7.8 mg/dL (8.4-10.2); CARBON DIOXIDE 26 mmol/L (22-30); CHLORIDE 101 mmol/L (98-107); GLUCOSE 120 mg/dL (75-110); IRON(TIBC) 52.5 ug/dL (37-170); TOTAL PROTEIN 4.6 g/dL (6.3-8.2)
[2019-12-27] MEDS: METOCLOPRAMIDE HCL INJ/PF 10 MG/2 ML SDV IV SCH ×4 (08:18→22:51)
[2019-12-27] MEDS: DRONABINOL 2.5 MG CAPSULE PO SCH ×3 (08:18→15:58)
[2019-12-27] MEDS: POLYETHYLENE GLYCOL 3350 POWDER 17 GM/1 PACKET PO SCH (09:43)
[2019-12-27] MEDS: FAMOTIDINE INJ/PF 20 MG/2 ML SDV IV SCH ×2 (09:43→22:51)
[2019-12-27] MEDS: ENOXAPARIN SODIUM INJ 30 MG/0.3 ML DISP.SYRIN SUBCUT SCH (09:44)
[2019-12-27] MEDS: DOCUSATE SODIUM 100 MG/10 ML UDC PO SCH ×2 (09:44→18:48)
[2019-12-27] MEDS: MAGNESIUM SULFATE/D5W 1 GM/100 ML RTUPB IV SCH ×2 (10:41→11:53)
[2019-12-27] MEDS ORDERED: THIAMINE HCL 100 MG, FOLIC ACID 1 MG in NORMAL SALINE 250 ML IV SCH (12:00)
[2019-12-27] MEDS: POTASSI CL 20 MEQ/50 ML RIDER 20 MEQ/50 ML RTUPB IV SCH ×3 (12:17→15:36)
--- NOTE | 2019-12-27 12:57 | PDOC PROGRESS REPORT ---
Subjective Progress Note for:: 12/27/19 Subjective:: DAVE PAZ is a 64 year old female who presented to the emergency room from Dr. Sanchez's office with a 2-month history of weight loss. 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 She underwent 2 surgical procedures and was reported as resected for cure. Since that time she has been gradually losing weight as she currently weighs 89 pounds. Her weight loss has been accompanied by progressive generalized weakness and has been associated with decreased appetite and chronic nausea with vomiting. She denies other associated or accompanying signs and symptoms. She denies prior similar episodes. She has not identified any additional aggravating or ameliorating factors for her weight loss. In the emergency room she was found to be cachectic and was noted to have hypokalemia, a mildly elevated white blood cell count, and minimally elevated lactic acid and an acute kidney injury. She was subsequently admitted to the hospital for further evaluation and treatment with Dr. Sanchez to be consulted at his direction. D1 hospital stay. 12/26/19. She was seen and examined at bedside. History reviewed from Dr. Greenwood notes. She still complains of nausea and vomiting whenever she eats but denies any abdominal pain or dysphagia. She has not had a BM for weeks now which is not surprising given that she has not eaten anything for several weeks. Dr. Silveira consulted for possible PEG tube placement for nutrition but upon his review of her case, TPN might be the best option at least temporarily to feed her. PICC line insertion ordered for saturday for TPN. D2 hospital stay 12/28/19. She was seen and examined at bedside. She appears and feels much better today. She was able to eat a sandwhich without vomiting. She was able to stand up and walk around the room. Dr. Silveira feels that PEG tube will not be the best option now and recommend PICC line and TPN. Plan for PICC line Saturday and TPN. Reason For Visit: WEIGHT LOSS Physical Exam Vital Signs: Temp Pulse Resp BP Pulse Ox 98.5 F 73 11 L 100/54 L 98 12/27/19 12:14 12/27/19 12:14 12/27/19 12:14 12/27/19 12:14 12/27/19 12:14 Intake & Output 12/26/19 12/27/19 12/28/19 07:59 06:59 06:59 Intake Total 1100 Output Total Balance 1100 Weight General appearance: PRESENT: no acute distress, cooperative, thin Head exam: PRESENT: atraumatic, normocephalic Eye exam: PRESENT: EOMI, PERRLA Mouth exam: PRESENT: moist Teeth exam: PRESENT: other - missing teeth right side of her mouth 2/2 to recent gum cancer resection Throat exam: ABSENT: tonsillar erythema Neck exam: PRESENT: full ROM Respiratory exam: PRESENT: clear to auscultation alejandro, symmetrical, unlabored Cardiovascular exam: PRESENT: RRR, +S1, +S2 GI/Abdominal exam: PRESENT: normal bowel sounds, soft. ABSENT: tenderness Extremities exam: PRESENT: full ROM Musculoskeletal exam: PRESENT: full ROM Neurological exam: PRESENT: alert, awake, oriented to person, oriented to place, oriented to time, oriented to situation Psychiatric exam: PRESENT: normal mood Skin exam: PRESENT: normal color Results Laboratory Results: 12/27/19 06:57 12/27/19 06:57 12/26/19 12/27/19 12/27/19 16:20 06:57 06:57 WBC 8.6 RBC 3.30 L Hgb 9.9 L D Hct 27.5 L MCV 83 MCH 30.0 MCHC 35.9 RDW 13.4 Plt Count 233 Retic Count (auto) 0.78 Sodium 136.0 L Potassium 3.0 L* Chloride 101 Carbon Dioxide 26 Anion Gap 9 BUN 10 Creatinine 1.12 Est GFR ( Amer) > 60 Glucose 120 H Calcium 7.8 L Magnesium 1.5 L Iron 52.5 TIBC 177 L % Saturation 30 Ferritin 139.00 Total Bilirubin 0.3 AST 20 Alkaline Phosphatase 52 Total Protein 4.6 L Albumin 2.5 L Vitamin B12 775.0 Folate 6.50 Impressions: Abdomen/Pelvis CT 12/25/19 17:23 IMPRESSION: 1. Thickened appearance about the ascending and transverse colon and a noncontiguous pattern. This could be due to underdistention and peristalsis or colitis. Clinical correlation is recommended. 2. Cholelithiasis without gross CT evidence of acute cholecystitis, however ultrasound or HIDA scan could be performed as clinically directed. TECHNICAL DOCUMENTATION: Quality ID # 436: Final reports with documentation of one or more dose reduction techniques (e.g., Automated exposure control, adjustment of the mA and/or kV according to patient size, use of iterative reconstruction technique) copyright 2011 [employer]- All Rights Reserved Abdomen Ultrasound 12/25/19 21:21 IMPRESSION: 1. Gallbladder is difficult to visualize but does appear to have gallstones. No evidence of acute cholecystitis. 2. No hydronephrosis. No acute process is seen in the right upper quadrant. 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 This could be due to underdistention and peristalsis or colitis. Cholelithiasis without gross evidence of acute cholecystitis. - BMI 16 - Na 128.6>136, K 2.7>3.0, Crea 1.4 - she is at risk for re-feeding syndrome - Folate Normal, b12 normal - pending thiamine and vitamin A level - will check Ma, PO4 daily especially when TPN is started - Started on IV fluids D5 half normal - IV thiamine and folate given - Advanced Clinical Specialist consulted - Surgery consulted. Suggest PICC line and TPN for now. Please refer to surgery notes - PT/OT - Dr. Sanchez consulted (2) Severe protein-calorie malnutrition Is this a current diagnosis for this admission?: Yes Plan: - 2/2 poor oral intake - at risk for refeeding syndrome - dietary consult - TPN for nutrition per surgery recs - CMP, Mg and PO4 levels daily (3) Acute kidney injury Is this a current diagnosis for this admission?: Yes Plan: - Crea 1.41>1.12 unknown baseline - likely pre renal from poor oral intake - continue hydration with D5 half normal - will monitor crea (4) Gum cancer Is this a current diagnosis for this admission?: Yes Plan: - dx 6 weeks ago well-differentiated squamous cell carcinoma, p16 positive - s/p partial mandibulectomy, alveolectomy, with flap from lower thigh - no residual disease, so 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 Did not receive chemo - dr. Sanchez following (5) Weight loss, abnormal Is this a current diagnosis for this admission?: Yes Plan: - 30 Ib weight loss 6 weeks unintentional - plan for TPN for nutrition atleast for the time being (6) Hypokalemia Is this a current diagnosis for this admission?: Yes Plan: K 2.8 - replacing via IV - will monitor (7) Hyponatremia Is this a current diagnosis for this admission?: Yes Plan: - Na 128.6>136 - likely 2/2 dehydration - on D5 half normal - will repeat BMP later today (8) Cholelithiasis Qualifiers: Cholelithiasis location: gallbladder Cholecystitis presence: without cholecystitis Biliary obstruction: without biliary obstruction Qualified Code(s): K80.20 - Calculus of gallbladder without cholecystitis without obstruction Is this a current diagnosis for this admission?: Yes Plan: - incidental finding on CT abdomen - no abdominal pain - will monitor - Time Time Spent with patient: 25-34 minutes Anticipated Discharge Disposition: Home, Self Care Anticipated Discharge Timeframe: to be determined
[2019-12-27] MEDS: MULTIVITAMIN TABLET PO SCH (13:03)
[2019-12-27] MEDS ORDERED: POTASSI CL 20 MEQ/50 ML RIDER 20 MEQ/50 ML RTUPB IV SCH (19:15)
[2019-12-28] MEDS: DEXTROSE 5%-1/2 NORMAL SALINE 1,000 ML IV PRN ×2 (05:20→16:42)
[2019-12-28 06:23] LABS: HEMATOCRIT 28.7 % (36.0-47.0); HEMOGLOBIN 10.2 g/dL (12.0-15.5); MEAN CORPUSCULAR HEMOGLOBIN 29.8 pg (27.0-33.4); MEAN CORPUSCULAR HGB CONC 35.6 g/dL (32.0-36.0); MEAN CORPUSCULAR VOLUME 84 fl (80-97); PLATELET COUNT 228 10^3/uL (150-450); RED BLOOD COUNT 3.43 10^6/uL (3.72-5.28); RED CELL DISTRIBUTION WIDTH 13.7 % (11.5-14.0); WHITE BLOOD COUNT 8.8 10^3/uL (4.0-10.5)
[2019-12-28 08:18] LABS: APPEARANCE,URINE CLEAR; BILIRUBIN,URINE NEGATIVE (NEGATIVE); COLOR,URINE STRAW; GLUCOSE, URINE NEGATIVE (NEGATIVE); KETONES,URINE NEGATIVE (NEGATIVE); LEUKOCYTE ESTERASE,URINE NEGATIVE (NEGATIVE); NITRITE,URINE NEGATIVE (NEGATIVE); PROTEIN,URINE NEGATIVE (NEGATIVE); URINE SPECIFIC GRAVITY 1.003; UROBILINOGEN,URINE NEGATIVE mg/dL (<2.0)
[2019-12-28] MEDS ORDERED: GLUCAGON,HUMAN RECOMB 1 MG INJ IM PRN (08:57)
[2019-12-28] MEDS ORDERED: DEXTROSE 40% GEL 15 GM TUBE PO PRN ×2 (08:57)
[2019-12-28] MEDS ORDERED: DEXTROSE 50%-WATER 25 GM/50 ML DISP.SYRIN IV PRN ×2 (08:57)
[2019-12-28] MEDS ORDERED: DEXTROSE 10%-WATER 1,000 ML IV PRN (08:57)
--- NOTE | 2019-12-28 09:07 | PDOC PROGRESS REPORT ---
Subjective Progress Note for:: 12/28/19 Subjective:: Patient up walking around room. She states that yesterday, she had several IVs and PPN infusing for most of the day. Plan is for PICC line today, but she has not yet been told that she is NPO, so not sure what time this procedure will happen. No other complaints today. Agreeable with plan overall. Reason For Visit: WEIGHT LOSS Physical Exam Vital Signs: Temp Pulse Resp BP Pulse Ox 98.5 F 74 14 104/59 L 98 12/28/19 07:40 12/28/19 07:40 12/28/19 07:40 12/28/19 07:40 12/28/19 07:40 Intake & Output 12/27/19 12/28/19 12/29/19 06:59 06:59 06:59 Intake Total 5261.2 Output Total 4700 Balance 561.2 Weight 52 kg General appearance: PRESENT: no acute distress, thin Head exam: PRESENT: normocephalic Eye exam: PRESENT: EOMI Respiratory exam: PRESENT: unlabored Musculoskeletal exam: PRESENT: ambulatory, normal inspection Neurological exam: PRESENT: alert, awake, oriented to person, oriented to place, oriented to time, oriented to situation Psychiatric exam: PRESENT: appropriate affect Skin exam: PRESENT: normal color Results Laboratory Results: 12/28/19 06:00 12/27/19 06:57 12/27/19 12/28/19 12/28/19 06:57 06:00 07:50 WBC 8.8 RBC 3.43 L Hgb 10.2 L Hct 28.7 L MCV 84 MCH 29.8 MCHC 35.6 RDW 13.7 Plt Count 228 Ferritin 139.00 Folate 6.50 Urine Color STRAW Urine Appearance CLEAR Urine pH 6.0 Ur Specific [place] 1.003 Urine Protein NEGATIVE Urine Glucose (UA) NEGATIVE Urine Ketones NEGATIVE Urine Blood NEGATIVE Urine Nitrite NEGATIVE Ur Leukocyte Esterase NEGATIVE Urine WBC (Auto) 1 Urine RBC (Auto) 0 Impressions: Abdomen/Pelvis CT 12/25/19 17:23 IMPRESSION: 1. Thickened appearance about the ascending and transverse colon and a noncontiguous pattern. This could be due to underdistention and peristalsis or colitis. Clinical correlation is recommended. 2. Cholelithiasis without gross CT evidence of acute cholecystitis, however ultrasound or HIDA scan could be performed as clinically directed. TECHNICAL DOCUMENTATION: Quality ID # [id number]: Final reports with documentation of one or more dose reduction techniques (e.g., Automated exposure control, adjustment of the mA and/or kV according to patient size, use of iterative reconstruction technique) copyright 2011 [employer]- All Rights Reserved Abdomen Ultrasound 12/25/19 21:21 IMPRESSION: 1. Gallbladder is difficult to visualize but does appear to have gallstones. No evidence of acute cholecystitis. 2. No hydronephrosis. No acute process is seen in the right upper quadrant. Assessment & Plan - Diagnosis (1) Failure to thrive in adult Is this a current diagnosis for this admission?: Yes Plan: PICC line placement today, then start TPN. Appreciate surgery's help. (2) Gum cancer Is this a current diagnosis for this admission?: Yes Plan: s/p treatment. No further planned at present. - Time Time Spent with patient: Less than 15 minutes
[2019-12-28] MEDS: MULTIVITAMIN TABLET PO SCH (09:59)
[2019-12-28] MEDS: DRONABINOL 2.5 MG CAPSULE PO SCH ×3 (09:59→16:38)
[2019-12-28] MEDS: POTASSIUM CHLORIDE 10 MEQ TABLET.ER PO SCH ×3 (09:59→16:37)
[2019-12-28] MEDS: POTASSI CL 20 MEQ/50 ML RIDER 20 MEQ/50 ML RTUPB IV SCH ×2 (10:25→12:16)
[2019-12-28] MEDS: METOCLOPRAMIDE HCL INJ/PF 10 MG/2 ML SDV IV SCH ×4 (10:31→22:19)
[2019-12-28] MEDS: POLYETHYLENE GLYCOL 3350 POWDER 17 GM/1 PACKET PO SCH (10:32)
[2019-12-28] MEDS: DOCUSATE SODIUM 100 MG/10 ML UDC PO SCH (10:32)
[2019-12-28] MEDS: FAMOTIDINE INJ/PF 20 MG/2 ML SDV IV SCH (10:33)
[2019-12-28] MEDS: ENOXAPARIN SODIUM INJ 30 MG/0.3 ML DISP.SYRIN SUBCUT SCH (10:36)
[2019-12-28] MEDS: INSULIN REG, HUMAN 100 UNIT/ML 3 ML VIAL (PYX) SUBCUT SCH ×2 (14:39→19:43)
[2019-12-28] MEDS: MAGNESIUM SULFATE/D5W 1 GM/100 ML RTUPB IV SCH ×2 (16:38→18:18)
[2019-12-28] MEDS: DOCUSATE SODIUM 100 MG CAPSULE PO SCH (17:29)
[2019-12-28] MEDS ORDERED: AMINO ACIDS 5 %/DEXTROSE 20 % 1,000 ML IV PRN (18:00)
--- NOTE | 2019-12-28 18:53 | PDOC PROGRESS REPORT ---
Subjective Progress Note for:: 12/28/19 Subjective:: DAVE PAZ is a 64 year old female who presented to the emergency room from Dr. Sanchez's office with a 2-month history of weight loss. 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 She underwent 2 surgical procedures and was reported as resected for cure. Since that time she has been gradually losing weight as she currently weighs 89 pounds. Her weight loss has been accompanied by progressive generalized weakness and has been associated with decreased appetite and chronic nausea with vomiting. She denies other associated or accompanying signs and symptoms. She denies prior similar episodes. She has not identified any additional aggravating or ameliorating factors for her weight loss. In the emergency room she was found to be cachectic and was noted to have hypokalemia, a mildly elevated white blood cell count, and minimally elevated lactic acid and an acute kidney injury. She was subsequently admitted to the hospital for further evaluation and treatment with Dr. Sanchez to be consulted at his direction. D1 hospital stay. 12/26/19. She was seen and examined at bedside. History reviewed from Dr. Greenwood notes. She still complains of nausea and vomiting whenever she eats but denies any abdominal pain or dysphagia. She has not had a BM for weeks now which is not surprising given that she has not eaten anything for several weeks. Dr. Silveira consulted for possible PEG tube placement for nutrition but upon his review of her case, TPN might be the best option at least temporarily to feed her. PICC line insertion ordered for saturday for TPN. D2 hospital stay 12/27/19. She was seen and examined at bedside. She appears and feels much better today. She was able to eat a sandwhich without vomiting. She was able to stand up and walk around the room. Dr. Silveira feels that PEG tube will not be the best option now and recommend PICC line and TPN. Plan for PICC line Saturday and TPN. D3 hospital stay 12/28/19. She was seen and examined at bedside. She looks so much better and feels so much better too. She is able to finish almost 100% of her tray without any vomiting or nausea. She is able to walk independently. We have decided to hold off on the PICC line and TPN since she is able to eat adequately now. Reason For Visit: WEIGHT LOSS Physical Exam Vital Signs: Temp Pulse Resp BP Pulse Ox 98.5 F 80 16 101/64 100 12/28/19 16:14 12/28/19 16:14 12/28/19 16:14 12/28/19 16:14 12/28/19 16:14 Intake & Output 12/27/19 12/28/19 12/29/19 06:59 06:59 06:59 Intake Total 5261.2 1146 Output Total 4700 650 Balance 561.2 496 Weight 52 kg 52 kg General appearance: PRESENT: no acute distress, cooperative, thin Eye exam: PRESENT: EOMI, PERRLA Mouth exam: PRESENT: moist Neck exam: PRESENT: full ROM Respiratory exam: PRESENT: clear to auscultation alejandro, symmetrical, unlabored Cardiovascular exam: PRESENT: RRR, +S1, +S2 Pulses: PRESENT: +2 pedal pulses bilateral GI/Abdominal exam: PRESENT: normal bowel sounds, soft. ABSENT: rebound, tenderness Extremities exam: PRESENT: full ROM Musculoskeletal exam: PRESENT: full ROM Neurological exam: PRESENT: alert, awake, oriented to person, oriented to place, oriented to time, oriented to situation Psychiatric exam: PRESENT: normal mood Skin exam: PRESENT: normal color Results Laboratory Results: 12/28/19 06:00 12/27/19 06:57 12/28/19 12/28/19 12/28/19 06:00 06:00 07:50 WBC 8.8 RBC 3.43 L Hgb 10.2 L Hct 28.7 L MCV 84 MCH 29.8 MCHC 35.6 RDW 13.7 Plt Count 228 Phosphorus 1.7 L Urine Color STRAW Urine Appearance CLEAR Urine pH 6.0 Ur Specific [place] 1.003 Urine Protein NEGATIVE Urine Glucose (UA) NEGATIVE Urine Ketones NEGATIVE Urine Blood NEGATIVE Urine Nitrite NEGATIVE Ur Leukocyte Esterase NEGATIVE Urine WBC (Auto) 1 Urine RBC (Auto) 0 Impressions: Abdomen/Pelvis CT 12/25/19 17:23 IMPRESSION: 1. Thickened appearance about the ascending and transverse colon and a noncontiguous pattern. This could be due to underdistention and peristalsis or colitis. Clinical correlation is recommended. 2. Cholelithiasis without gross CT evidence of acute cholecystitis, however ultrasound or HIDA scan could be performed as clinically directed. TECHNICAL DOCUMENTATION: Quality ID # [id number]: Final reports with documentation of one or more dose reduction techniques (e.g., Automated exposure control, adjustment of the mA and/or kV according to patient size, use of iterative reconstruction technique) copyright 2011 [employer]- All Rights Reserved Abdomen Ultrasound 12/25/19 21:21 IMPRESSION: 1. Gallbladder is difficult to visualize but does appear to have gallstones. No evidence of acute cholecystitis. 2. No hydronephrosis. No acute process is seen in the right upper quadrant. 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 This could be due to underdistention and peristalsis or colitis. Cholelithiasis without gross evidence of acute cholecystitis. - BMI 16 - Na 128.6>136, K 2.7>3.0, Crea 1.4 - she is at risk for re-feeding syndrome - Folate Normal, b12 normal - Vitamin D low - pending thiamine and vitamin A level - she is now able to eat almost 100% of her meals. We have decided to hold off o n PICC line and TPN for now and reassess her appetite and ability to take food. - [place] Ro[employer] consulted - Surgery consulted. - PT/OT - Dr. Sanchez consulted (2) Severe protein-calorie malnutrition Is this a current diagnosis for this admission?: Yes Plan: - 2/2 poor oral intake - at risk for refeeding syndrome - dietary consult - significantly improved appetite so we have decided to hold off on PICC and TPN - CMP, Mg and PO4 levels daily (3) Acute kidney injury Is this a current diagnosis for this admission?: Yes Plan: - Crea 1.41>1.12 unknown baseline - likely pre renal from poor oral intake - encourage PO fluid inatke - will monitor crea (4) Gum cancer Is this a current diagnosis for this admission?: Yes Plan: - dx 6 weeks ago well-differentiated squamous cell carcinoma, p16 positive - s/p partial mandibulectomy, alveolectomy, with flap from lower thigh - no residual disease, so 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 Did not receive chemo - dr. Sanchez following (5) Weight loss, abnormal Is this a current diagnosis for this admission?: Yes Plan: - 30 Ib weight loss 6 weeks unintentional - plan for TPN for nutrition atleast for the time being (6) Hypokalemia Is this a current diagnosis for this admission?: Yes Plan: K 2.8>3.0 replacing - replacing via IV also oral - will monitor (7) Hyponatremia Is this a current diagnosis for this admission?: Yes Plan: - Na 128.6>136 - likely 2/2 dehydration - continue to monitor (8) Hypomagnesemia Is this a current diagnosis for this admission?: Yes Plan: - Mg 1.5 replaced via IV - will monitor (9) Hypophosphatemia Is this a current diagnosis for this admission?: Yes Plan: - Po4 1.7 replaced orally - 2/2 refeeding - will monitor (10) Cholelithiasis Qualifiers: Cholelithiasis location: gallbladder Cholecystitis presence: without cholecystitis Biliary obstruction: without biliary obstruction Qualified Code(s): K80.20 - Calculus of gallbladder without cholecystitis without obstruction Is this a current diagnosis for this admission?: Yes Plan: - incidental finding on CT abdomen - no abdominal pain - will monitor - Plan Summary Summary: Patient was admitted due to failure to thrive and significant weight loss following surgery for a common cancer diagnosed 6 weeks ago. Was unable to take anything orally due to severe nausea and vomiting resulting to significant weight loss. Initial plan was to start her on TPN for nutrition. However since being admitted she has regained her appetite and is able to eat almost 100% of her meals. PICC line and TPN plan was put on hold after discussion with the patient since she wants to try normal eating without any TPN. Dr. Sanchez following - Time Time Spent with patient: 25-34 minutes Anticipated Discharge Disposition: Home, Self Care Anticipated Discharge Timeframe: within 48 hours
[2019-12-28] MEDS: PHOSPHORUS #1 250 MG TABLET PO SCH (22:19)
--- NOTE | 2019-12-29 07:57 | PDOC PROGRESS REPORT ---
Subjective Progress Note for:: 12/29/19 Subjective:: Patient taken a lot of oral nutrition, hungry and wanting more. Is passing a lot of gas. No bowel movement as of yet. I ordered enema today. Reason For Visit: WEIGHT LOSS Physical Exam Vital Signs: Temp Pulse Resp BP Pulse Ox 98.3 F 90 17 93/54 L 100 12/29/19 00:21 12/29/19 02:00 12/29/19 00:21 12/29/19 00:21 12/29/19 00:21 Intake & Output 12/28/19 12/29/19 12/30/19 06:59 06:59 06:59 Intake Total 5261.2 3117 Output Total 4700 4675 Balance 561.2 -1558 Weight 52 kg 50.3 kg General appearance: PRESENT: no acute distress, well-developed, well-nourished Head exam: PRESENT: atraumatic, normocephalic Eye exam: PRESENT: conjunctiva pink, EOMI, PERRLA. ABSENT: scleral icterus Ear exam: PRESENT: normal external ear exam Mouth exam: PRESENT: moist, tongue midline Neck exam: ABSENT: carotid bruit, JVD, lymphadenopathy, thyromegaly Respiratory exam: PRESENT: clear to auscultation alejandro. ABSENT: rales, rhonchi, wheezes Cardiovascular exam: PRESENT: RRR. ABSENT: diastolic murmur, rubs, systolic murmur Pulses: PRESENT: normal dorsalis pedis pul Vascular exam: PRESENT: normal capillary refill GI/Abdominal exam: PRESENT: normal bowel sounds, soft. ABSENT: distended, guarding, mass, organolmegaly, rebound, tenderness Rectal exam: PRESENT: deferred Extremities exam: PRESENT: full ROM. ABSENT: calf tenderness, clubbing, pedal edema Neurological exam: PRESENT: alert, awake, oriented to person, oriented to place, oriented to time, oriented to situation, CN II-XII grossly intact. ABSENT: motor sensory deficit Psychiatric exam: PRESENT: appropriate affect, normal mood. ABSENT: homicidal ideation, suicidal ideation Skin exam: PRESENT: dry, intact, warm. ABSENT: cyanosis, rash Results Laboratory Results: 12/28/19 06:00 12/27/19 06:57 12/28/19 12/28/19 06:00 07:50 Phosphorus 1.7 L Urine Color STRAW Urine Appearance CLEAR Urine pH 6.0 Ur Specific [place] 1.003 Urine Protein NEGATIVE Urine Glucose (UA) NEGATIVE Urine Ketones NEGATIVE Urine Blood NEGATIVE Urine Nitrite NEGATIVE Ur Leukocyte Esterase NEGATIVE Urine WBC (Auto) 1 Urine RBC (Auto) 0 Impressions: Abdomen/Pelvis CT 12/25/19 17:23 IMPRESSION: 1. Thickened appearance about the ascending and transverse colon and a noncontiguous pattern. This could be due to underdistention and peristalsis or colitis. Clinical correlation is recommended. 2. Cholelithiasis without gross CT evidence of acute cholecystitis, however ultrasound or HIDA scan could be performed as clinically directed. TECHNICAL DOCUMENTATION: Quality ID # 436: Final reports with documentation of one or more dose reduction techniques (e.g., Automated exposure control, adjustment of the mA and/or kV according to patient size, use of iterative reconstruction technique) copyright 2011 [employer]- All Rights Reserved Abdomen Ultrasound 12/25/19 21:21 IMPRESSION: 1. Gallbladder is difficult to visualize but does appear to have gallstones. No evidence of acute cholecystitis. 2. No hydronephrosis. No acute process is seen in the right upper quadrant. Assessment & Plan - Diagnosis (1) Nausea and vomiting Qualifiers: Vomiting type: unspecified Vomiting Intractability: non-intractable Qualified Code(s): R11.2 - Nausea with vomiting, unspecified Is this a current diagnosis for this admission?: Yes Plan: Improved, secondary to ileus. But it seems that the bowels are moving gas at least, plan for enema today (2) Generalized weakness Is this a current diagnosis for this admission?: Yes Plan: Improving, as nutrition improves she is getting stronger (3) Acute kidney injury Is this a current diagnosis for this admission?: Yes Plan: Resolving, secondary to inability to eat (4) Ileus, postoperative Is this a current diagnosis for this admission?: Yes Plan: Slowly resolving, plan for enema today (5) Gum cancer Is this a current diagnosis for this admission?: Yes Plan: Status post full resection, no evidence of disease currently - Time Time Spent with patient: 35 or more minutes
[2019-12-29] MEDS: INSULIN REG, HUMAN 100 UNIT/ML 3 ML VIAL (PYX) SUBCUT SCH ×3 (08:07→11:16)
[2019-12-29] MEDS: POTASSIUM CHLORIDE 10 MEQ TABLET.ER PO SCH ×3 (08:14→17:09)
[2019-12-29] MEDS: METOCLOPRAMIDE HCL INJ/PF 10 MG/2 ML SDV IV SCH ×4 (08:14→23:37)
[2019-12-29] MEDS: PHOSPHORUS #1 250 MG TABLET PO SCH ×2 (08:15→17:11)
[2019-12-29] MEDS: DRONABINOL 2.5 MG CAPSULE PO SCH ×3 (08:15→17:09)
[2019-12-29] MEDS: DEXTROSE 5%-1/2 NORMAL SALINE 1,000 ML IV PRN (08:21)
[2019-12-29 09:51] LABS: HEMATOCRIT 29.2 % (36.0-47.0); HEMOGLOBIN 10.4 g/dL (12.0-15.5); MEAN CORPUSCULAR HEMOGLOBIN 29.9 pg (27.0-33.4); MEAN CORPUSCULAR HGB CONC 35.4 g/dL (32.0-36.0); MEAN CORPUSCULAR VOLUME 84 fl (80-97); PLATELET COUNT 214 10^3/uL (150-450); RED BLOOD COUNT 3.46 10^6/uL (3.72-5.28); RED CELL DISTRIBUTION WIDTH 13.8 % (11.5-14.0); WHITE BLOOD COUNT 8.1 10^3/uL (4.0-10.5)
[2019-12-29] MEDS: POLYETHYLENE GLYCOL 3350 POWDER 17 GM/1 PACKET PO SCH (10:09)
[2019-12-29] MEDS: MULTIVITAMIN TABLET PO SCH (10:09)
[2019-12-29] MEDS: DOCUSATE SODIUM 100 MG CAPSULE PO SCH ×2 (10:09→17:09)
[2019-12-29] MEDS: ENOXAPARIN SODIUM INJ 30 MG/0.3 ML DISP.SYRIN SUBCUT SCH (10:09)
[2019-12-29] MEDS: CHOLECALCIFEROL (D3) 400 UNIT TABLET PO SCH (10:10)
[2019-12-29 10:16] LABS: ALBUMIN 2.9 g/dL (3.5-5.0); ALKALINE PHOSPHATASE 56 U/L (38-126); ANION GAP 9 (5-19); ASPARTATE AMINO TRANSFERASE 23 U/L (14-36); BILIRUBIN,DIRECT 0.2 mg/dL (0.0-0.4); BILIRUBIN,TOTAL 0.4 mg/dL (0.2-1.3); BLOOD UREA NITROGEN 7 mg/dL (7-20); CALCIUM 8.2 mg/dL (8.4-10.2); CARBON DIOXIDE 26 mmol/L (22-30); CHLORIDE 102 mmol/L (98-107); GLUCOSE 113 mg/dL (75-110); PHOSPHORUS 2.2 mg/dL (2.5-4.5); POTASSIUM 4.6 mmol/L (3.6-5.0); TOTAL PROTEIN 5.1 g/dL (6.3-8.2)
[2019-12-29] MEDS ORDERED: NA PHOS,M-B/NA PHOS,DI-BA (ADULT) 133 ML ENEMA PR PRN (11:00)
[2019-12-29] MEDS ORDERED: NA PHOS,M-B/NA PHOS,DI-BA (ADULT) 133 ML ENEMA PR ONE (11:30)
--- NOTE | 2019-12-29 19:15 | PDOC PROGRESS REPORT ---
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 Patient was seen on morning rounds. She was found sitting upright in bed, comfortably, on room air while eating her lunch. She reports that she is feeling well today with increased energy and appetite. Eating 25 to 100% of each meal. She has no complaints currently; states she feels well and is hopeful to discharge to home soon. She does admit to constipation, although, she is passing gas. She denies fever, chills, chest pain, palpitations, dyspnea, orthopnea, abdominal pain, nausea vomiting diarrhea. She has no questions or concerns at this time. No concerns per nursing. Reason For Visit: WEIGHT LOSS Physical Exam Vital Signs: Temp Pulse Resp BP Pulse Ox 98.9 F 85 15 92/52 L 99 12/29/19 15:11 12/29/19 15:11 12/29/19 15:11 12/29/19 15:11 12/29/19 15:11 Intake & Output 12/28/19 12/29/19 12/30/19 06:59 06:59 06:59 Intake Total 5261.2 3117 281 Output Total 4700 4675 900 Balance 561.2 -1558 -619 Weight 52 kg 50.3 kg General appearance: PRESENT: no acute distress, cooperative, thin, well- developed Head exam: PRESENT: atraumatic, normocephalic Eye exam: PRESENT: conjunctiva pink, EOMI, PERRLA. ABSENT: scleral icterus Mouth exam: PRESENT: moist, tongue midline Respiratory exam: PRESENT: clear to auscultation alejandro, symmetrical, unlabored, other - room air. ABSENT: rales, rhonchi, wheezes Cardiovascular exam: PRESENT: RRR, +S1, +S2. ABSENT: diastolic murmur, rubs, systolic murmur Vascular exam: PRESENT: normal capillary refill GI/Abdominal exam: PRESENT: normal bowel sounds, soft. ABSENT: distended, guarding, mass, organolmegaly, rebound, tenderness Rectal exam: PRESENT: deferred Extremities exam: PRESENT: full ROM. ABSENT: calf tenderness, clubbing, pedal edema Musculoskeletal exam: PRESENT: ambulatory Neurological exam: PRESENT: alert, awake, oriented to person, oriented to place, oriented to time, oriented to situation, CN II-XII grossly intact. ABSENT: motor sensory deficit Psychiatric exam: PRESENT: appropriate affect, normal mood. ABSENT: homicidal ideation, suicidal ideation Skin exam: PRESENT: dry, intact, warm. ABSENT: cyanosis, rash Results Laboratory Results: 12/29/19 09:35 12/29/19 09:35 12/29/19 12/29/19 09:35 09:35 WBC 8.1 RBC 3.46 L Hgb 10.4 L Hct 29.2 L MCV 84 MCH 29.9 MCHC 35.4 RDW 13.8 Plt Count 214 Sodium 136.7 L Potassium 4.6 Chloride 102 Carbon Dioxide 26 Anion Gap 9 BUN 7 Creatinine 1.06 Est GFR ( Amer) > 60 Glucose 113 H Calcium 8.2 L Phosphorus 2.2 L Magnesium 1.9 Total Bilirubin 0.4 AST 23 Alkaline Phosphatase 56 Total Protein 5.1 L Albumin 2.9 L Impressions: Abdomen/Pelvis CT 12/25/19 17:23 IMPRESSION: 1. Thickened appearance about the ascending and transverse colon and a noncontiguous pattern. This could be due to underdistention and peristalsis or colitis. Clinical correlation is recommended. 2. Cholelithiasis without gross CT evidence of acute cholecystitis, however ultrasound or HIDA scan could be performed as clinically directed. TECHNICAL DOCUMENTATION: Quality ID # 436: Final reports with documentation of one or more dose reduction techniques (e.g., Automated exposure control, adjustment of the mA and/or kV according to patient size, use of iterative reconstruction technique) copyright 2011 [employer]- All Rights Reserved Abdomen Ultrasound 12/25/19 21:21 IMPRESSION: 1. Gallbladder is difficult to visualize but does appear to have gallstones. No evidence of acute cholecystitis. 2. No hydronephrosis. No acute process is seen in the right upper quadrant. 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 - CT abdomen thickened appearance of the ascending and transverse colon in a noncontinuous pattern. This could be due to underdistention and peristalsis or colitis. Cholelithiasis without gross evidence of acute cholecystitis. BMI 16-> 18.5 - she is at risk for re-feeding syndrome - Folate Normal, b12 normal - Vitamin D low - pending thiamine and vitamin A level Started on Marinol 2.5 mg with meals. Now eating >25% of all meals; 100% of some. Reports increased appetite. Monitor chemistries and correct electrolytes as indicated. Civil Engineering Manager consulted PT/OT Dr. Sanchez consulted (2) Acute kidney injury Is this a current diagnosis for this admission?: Yes Plan: Resolved; Crea 1.41-> 1.06 - likely pre renal from poor oral intake - encourage PO fluid inatke Avoid nephrotoxic medications Follow up chemistry (3) Cholelithiasis Qualifiers: Cholelithiasis location: gallbladder Cholecystitis presence: without cholecystitis Biliary obstruction: without biliary obstruction Qualified Code(s): K80.20 - Calculus of gallbladder without cholecystitis without obstruction Is this a current diagnosis for this admission?: Yes Plan: - incidental finding on CT abdomen - no abdominal pain - will monitor (4) Gum cancer Is this a current diagnosis for this admission?: Yes Plan: - dx 6 weeks ago well-differentiated squamous cell carcinoma, p16 positive - s/p partial mandibulectomy, alveolectomy, with flap from lower thigh - no residual disease, 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 Did not receive chemo Dr. Sanchez following; primary plan per oncology (5) Hypokalemia Is this a current diagnosis for this admission?: Yes Plan: K 2.8-> 3.0-> 4.6 Continue to monitor daily chemistries and replace as indicated. Periodic magnesium levels (6) Hypomagnesemia Is this a current diagnosis for this admission?: Yes Plan: Replete Continue to monitor (7) Hyponatremia Is this a current diagnosis for this admission?: Yes Plan: - Na 128.6-> 136-> 136.7 - likely 2/2 dehydration Should improve w/ improved p.o. intake Continue to monitor (8) Hypophosphatemia Is this a current diagnosis for this admission?: Yes Plan: - Po4 1.7 replaced orally - 2/2 refeeding - will monitor (9) Severe protein-calorie malnutrition Is this a current diagnosis for this admission?: Yes Plan: - 2/2 poor oral intake - at risk for refeeding syndrome - dietary consult - significantly improved appetite so we have decided to hold off on PICC and TPN - CMP, Mg and PO4 levels daily Remaining management as above. (10) Weight loss, abnormal Is this a current diagnosis for this admission?: Yes Plan: - 30 Ib weight loss 6 weeks unintentional Evaluation and management as above. - Time Time Spent with patient: 25-34 minutes Medications reviewed and adjusted accordingly: Yes Anticipated Discharge Disposition: Home, Self Care Anticipated Discharge Timeframe: within 48 hours
[2019-12-30 05:25] LABS: HEMATOCRIT 29.2 % (36.0-47.0); HEMOGLOBIN 10.1 g/dL (12.0-15.5); MEAN CORPUSCULAR HEMOGLOBIN 29.4 pg (27.0-33.4); MEAN CORPUSCULAR HGB CONC 34.7 g/dL (32.0-36.0); MEAN CORPUSCULAR VOLUME 85 fl (80-97); PLATELET COUNT 215 10^3/uL (150-450); RED BLOOD COUNT 3.44 10^6/uL (3.72-5.28); RED CELL DISTRIBUTION WIDTH 14.2 % (11.5-14.0); WHITE BLOOD COUNT 8.3 10^3/uL (4.0-10.5)
[2019-12-30 05:57] LABS: BLOOD UREA NITROGEN 9 mg/dL (7-20); CALCIUM 8.8 mg/dL (8.4-10.2); CARBON DIOXIDE 32 mmol/L (22-30); CHLORIDE 101 mmol/L (98-107); GLUCOSE 103 mg/dL (75-110); PHOSPHORUS 2.5 mg/dL (2.5-4.5)
[2019-12-30 06:07] LABS: ANION GAP 7 (5-19)
--- NOTE | 2019-12-30 07:53 | PDOC PROGRESS REPORT ---
Subjective Progress Note for:: 12/30/19 Subjective:: Patient seems to be doing better, bowel movements are recorded, will confirm with patient Reason For Visit: WEIGHT LOSS Physical Exam Vital Signs: Temp Pulse Resp BP Pulse Ox 98.5 F 85 16 104/64 100 12/29/19 23:34 12/30/19 02:00 12/29/19 23:34 12/29/19 23:34 12/29/19 23:34 Intake & Output 12/29/19 12/30/19 12/31/19 06:59 06:59 06:59 Intake Total 3117 801 Output Total 4696 4208 Balance -1955 -6866 Weight 50.3 kg 50.1 kg General appearance: PRESENT: no acute distress, well-developed, well-nourished Head exam: PRESENT: atraumatic, normocephalic Eye exam: PRESENT: conjunctiva pink, EOMI, PERRLA. ABSENT: scleral icterus Ear exam: PRESENT: normal external ear exam Mouth exam: PRESENT: moist, tongue midline Neck exam: ABSENT: carotid bruit, JVD, lymphadenopathy, thyromegaly Respiratory exam: PRESENT: clear to auscultation alejandro. ABSENT: rales, rhonchi, wheezes Cardiovascular exam: PRESENT: RRR. ABSENT: diastolic murmur, rubs, systolic murmur Pulses: PRESENT: normal dorsalis pedis pul Vascular exam: PRESENT: normal capillary refill GI/Abdominal exam: PRESENT: normal bowel sounds, soft. ABSENT: distended, guarding, mass, organolmegaly, rebound, tenderness Rectal exam: PRESENT: deferred Extremities exam: PRESENT: full ROM. ABSENT: calf tenderness, clubbing, pedal edema Neurological exam: PRESENT: alert, awake, oriented to person, oriented to place, oriented to time, oriented to situation, CN II-XII grossly intact. ABSENT: motor sensory deficit Psychiatric exam: PRESENT: appropriate affect, normal mood. ABSENT: homicidal ideation, suicidal ideation Skin exam: PRESENT: dry, intact, warm. ABSENT: cyanosis, rash Results Laboratory Results: 12/30/19 05:02 12/30/19 05:02 12/29/19 12/29/19 12/30/19 09:35 09:35 05:02 WBC 8.1 RBC 3.46 L Hgb 10.4 L Hct 29.2 L MCV 84 MCH 29.9 MCHC 35.4 RDW 13.8 Plt Count 214 Sodium 136.7 L 137.0 Potassium 4.6 5.0 Chloride 102 101 Carbon Dioxide 26 32 H Anion Gap 9 7 BUN 7 9 Creatinine 1.06 1.10 Est GFR ( Amer) > 60 > 60 Glucose 113 H 103 Calcium 8.2 L 8.8 Phosphorus 2.2 L 2.5 Magnesium 1.9 1.6 Total Bilirubin 0.4 AST 23 Alkaline Phosphatase 56 Total Protein 5.1 L Albumin 2.9 L 12/30/19 05:02 WBC 8.3 RBC 3.44 L Hgb 10.1 L Hct 29.2 L MCV 85 MCH 29.4 MCHC 34.7 RDW 14.2 H Plt Count 215 Sodium Potassium Chloride Carbon Dioxide Anion Gap BUN Creatinine Est GFR ( Amer) Glucose Calcium Phosphorus Magnesium Total Bilirubin AST Alkaline Phosphatase Total Protein Albumin Impressions: Abdomen/Pelvis CT 12/25/19 17:23 IMPRESSION: 1. Thickened appearance about the ascending and transverse colon and a noncontiguous pattern. This could be due to underdistention and peristalsis or colitis. Clinical correlation is recommended. 2. Cholelithiasis without gross CT evidence of acute cholecystitis, however ultrasound or HIDA scan could be performed as clinically directed. TECHNICAL DOCUMENTATION: Quality ID # 436: Final reports with documentation of one or more dose reduction techniques (e.g., Automated exposure control, adjustment of the mA and/or kV according to patient size, use of iterative reconstruction technique) copyright 2011 [employer]- All Rights Reserved Abdomen Ultrasound 12/25/19 21:21 IMPRESSION: 1. Gallbladder is difficult to visualize but does appear to have gallstones. No evidence of acute cholecystitis. 2. No hydronephrosis. No acute process is seen in the right upper quadrant. Assessment & Plan - Diagnosis (1) Nausea and vomiting Qualifiers: Vomiting type: unspecified Vomiting Intractability: non-intractable Qualified Code(s): R11.2 - Nausea with vomiting, unspecified Is this a current diagnosis for this admission?: Yes Plan: Improved, secondary to ileus seems resolving (2) Generalized weakness Is this a current diagnosis for this admission?: Yes Plan: Improved, as patient seems to be eating now (3) Acute kidney injury Is this a current diagnosis for this admission?: Yes Plan: Improving, secondary to dehydration (4) Ileus, postoperative Is this a current diagnosis for this admission?: Yes Plan: Improving, postoperative (5) Gum cancer Is this a current diagnosis for this admission?: Yes Plan: Disease-free currently, will follow up - Time Time Spent with patient: 35 or more minutes
[2019-12-30] MEDS: PHOSPHORUS #1 250 MG TABLET PO SCH (08:37)
[2019-12-30] MEDS: DRONABINOL 2.5 MG CAPSULE PO SCH ×2 (08:37→11:51)
[2019-12-30] MEDS: POTASSIUM CHLORIDE 10 MEQ TABLET.ER PO SCH ×2 (08:37→11:51)
[2019-12-30] MEDS: METOCLOPRAMIDE HCL INJ/PF 10 MG/2 ML SDV IV SCH ×2 (08:53→11:50)
[2019-12-30] MEDS: DEXTROSE 5%-1/2 NORMAL SALINE 1,000 ML IV PRN (09:04)
[2019-12-30 09:49] LABS: APPEARANCE,URINE CLEAR; BILIRUBIN,URINE NEGATIVE (NEGATIVE); COLOR,URINE COLORLESS; GLUCOSE, URINE NEGATIVE (NEGATIVE); KETONES,URINE NEGATIVE (NEGATIVE); LEUKOCYTE ESTERASE,URINE NEGATIVE (NEGATIVE); NITRITE,URINE NEGATIVE (NEGATIVE); PROTEIN,URINE NEGATIVE (NEGATIVE); URINE SPECIFIC GRAVITY 1.004; UROBILINOGEN,URINE NEGATIVE mg/dL (<2.0)
[2019-12-30] MEDS: DOCUSATE SODIUM 100 MG CAPSULE PO SCH (10:39)
[2019-12-30] MEDS: MULTIVITAMIN TABLET PO SCH (10:39)
[2019-12-30] MEDS: POLYETHYLENE GLYCOL 3350 POWDER 17 GM/1 PACKET PO SCH (10:39)
[2019-12-30] MEDS: ENOXAPARIN SODIUM INJ 30 MG/0.3 ML DISP.SYRIN SUBCUT SCH (10:39)
[2019-12-30] MEDS: CHOLECALCIFEROL (D3) 400 UNIT TABLET PO SCH (10:39)
[2019-12-30 11:57] VITALS: BP 98/58
--- NOTE | 2019-12-30 19:00 | PDOC DISCHARGE SUMMARY ---
Impression - Admit/DC Date/PCP Admission Date/Primary Care Provider: 12/26/19 00:33 Discharge Date: 12/30/19 - Discharge Diagnosis (1) Failure to thrive in adult Is this a current diagnosis for this admission?: Yes (2) Acute kidney injury Is this a current diagnosis for this admission?: Yes (3) Cholelithiasis Is this a current diagnosis for this admission?: Yes (4) Gum cancer Is this a current diagnosis for this admission?: Yes (5) Hypokalemia Is this a current diagnosis for this admission?: Yes (6) Hypomagnesemia Is this a current diagnosis for this admission?: Yes (7) Hyponatremia Is this a current diagnosis for this admission?: Yes (8) Hypophosphatemia Is this a current diagnosis for this admission?: Yes (9) Severe protein-calorie malnutrition Is this a current diagnosis for this admission?: Yes (10) Weight loss, abnormal Is this a current diagnosis for this admission?: Yes - Additional Information Resuscitation Status: Full Code Discharge Diet: Regular Discharge Activity: Activity As Tolerated, Balance Activity w/Rest, Slowly Increase Activity Referrals: CASTRO AN MD [ACTIVE STAFF] - 01/07/20 2:45 am Prescriptions: Metoclopramide HCl [Reglan] 5 mg PO AC #90 tablet Cholecalciferol (Vitamin D3) [Vitamin D3 400 Unit Tablet] 400 unit PO DAILY #90 tablet Ondansetron [Zofran Odt 4 mg Tablet] 1 - 2 tab PO Q4HP PRN #20 tab.rapdis PRN Reason: Home Medications: Latanoprost [Xalatan 0.005% Oph Soln 2.5 ml] 1 drop BTH_EYE QPM 11/28/15 Acetaminophen [Tylenol 325 mg Tablet] 650 mg PO Q4HP PRN tablet 12/30/19 Cholecalciferol (Vitamin D3) [Vitamin D3 400 Unit Tablet] 400 unit PO DAILY #90 tablet 12/30/19 Docusate Sodium [Colace 100 mg Capsule] 100 mg PO BID capsule 12/30/19 Metoclopramide HCl [Reglan] 5 mg PO AC #90 tablet 12/30/19 Multivitamin [Tab-A-Dilip (Multiple Vitamin) Tablet] 1 tab PO DAILY tablet 12/30/19 Ondansetron [Zofran Odt 4 mg Tablet] 1 - 2 tab PO Q4HP PRN #20 tab.rapdis 12/30/19 Polyethylene Glycol 3350 [Miralax Powder 17 gm/Packet] 17 gm PO DAILY powd.pack 12/30/19 History of Present Illiness History of Present Illness: Per H&P by Dr. Isaacs: DAVE PAZ is a 64 year old female who presented to the emergency room from Dr. An's office with a 2-month history of weight loss. 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 She underwent 2 surgical procedures and was reported as resected for cure. Since that time she has been gradually losing weight as she currently weighs 89 pounds. Her weight loss has been accompanied by progressive generalized weakness and has been associated with decreased appetite and chronic nausea with vomiting. She denies other associated or accompanying signs and symptoms. She denies prior similar episodes. She has not identified any additional aggravating or ameliorating factors for her weight loss. In the emergency room she was found to be cachectic and was noted to have hypokalemia, a mildly elevated white blood cell count, and minimally elevated lactic acid and an acute kidney injury. She was subsequently admitted to the hospital for further evaluation and treatment with Dr. An to be consulted at his direction. 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 This could be due to underdistention and peristalsis or colitis. Cholelithiasis without gross evidence of acute cholecystitis. - Folate Normal, b12 normal - Vitamin D low - pending thiamine and vitamin A level - AM Cortisol is nml Started on Marinol 2.5 mg with meals; discussed with patient. She does not wish to continue this medication at discharge. Now eating >25% of all meals; 100% of some. Reports increased appetite and resolution of her fatigue/generalized weakness. Monitored chemistries closely for evidence of refeeding syndrome; corrected electrolytes as indicated. Clerk To Justice consulted Dr. An consulted; will follow up in the office next week. (2) Acute kidney injury Resolved; Crea 1.41-> 1.06 - likely pre renal from poor oral intake Encourage PO fluid inatke Avoid nephrotoxic medications Patient to see Dr. An next week for follow up labs. (3) Cholelithiasis - incidental finding on CT abdomen (4) Gum cancer - dx 6 weeks ago well-differentiated squamous cell carcinoma, p16 positive - s/p partial mandibulectomy, alveolectomy, with flap from lower thigh - no residual disease, 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 Did not receive chemo Followed by Dr. An. Follow up appointment scheduled for next week. (5) Hypokalemia Replete K 2.8-> 3.0-> 4.[address] An next week for follow up labs. (6) Hypomagnesemia Replete Patient to see Dr. An next week for follow up labs. (7) Hyponatremia Resolved. - Na 128.6-> 136-> 136.7-> 137.0 Likely 2/2 dehydration Patient to see Dr. An next week for follow up labs. (8) Hypophosphatemia Replete. Patient to see Dr. An next week for follow up labs. (9) Severe protein-calorie malnutrition 2/2 poor oral intake Was closely monitored for risk for refeeding syndrome security control room officer consult requested. Remaining management as above. (10) Weight loss, abnormal 30 lb unintentional weight loss over last 6 weeks Evaluation and management as above. Physical Exam Vital Signs: Temp Pulse Resp BP Pulse Ox 99.0 F 97 16 98/58 L 100 12/30/19 12:49 12/30/19 12:49 12/30/19 12:49 12/30/19 12:49 12/30/19 12:49 Intake & Output 12/29/19 12/30/19 12/31/19 06:59 06:59 06:59 Intake Total 3114 3681 545 Output Total 1416 7413 Balance -8913 -9061 548 Weight 50.3 kg 50.1 kg General appearance: PRESENT: no acute distress, cooperative, thin, well- developed, well-nourished Head exam: PRESENT: atraumatic, normocephalic Eye exam: PRESENT: conjunctiva pink, EOMI, PERRLA. ABSENT: scleral icterus Mouth exam: PRESENT: moist, tongue midline Respiratory exam: PRESENT: clear to auscultation alejandro, symmetrical, unlabored. ABSENT: rales, rhonchi, wheezes Cardiovascular exam: PRESENT: RRR, +S1, +S2. ABSENT: diastolic murmur, rubs, systolic murmur Pulses: PRESENT: normal dorsalis pedis pul Vascular exam: PRESENT: normal capillary refill GI/Abdominal exam: PRESENT: normal bowel sounds, soft. ABSENT: distended, guarding, mass, organolmegaly, rebound, tenderness Rectal exam: PRESENT: deferred Extremities exam: PRESENT: full ROM. ABSENT: calf tenderness, clubbing, pedal edema Musculoskeletal exam: PRESENT: ambulatory Neurological exam: PRESENT: alert, awake, oriented to person, oriented to place, oriented to time, oriented to situation, CN II-XII grossly intact. ABSENT: motor sensory deficit Psychiatric exam: PRESENT: appropriate affect, normal mood. ABSENT: homicidal ideation, suicidal ideation Skin exam: PRESENT: dry, intact, warm. ABSENT: cyanosis, rash Results Laboratory Results: WBC 8.3 10^3/uL (4.0-10.5) 12/30/19 05:02 RBC 3.44 10^6/uL (3.72-5.28) L 12/30/19 05:02 Hgb 10.1 g/dL (12.0-15.5) L 12/30/19 05:02 Hct 29.2 % (36.0-47.0) L 12/30/19 05:02 MCV 85 fl (80-97) 12/30/19 05:02 MCH 29.4 pg (27.0-33.4) 12/30/19 05:02 MCHC 34.7 g/dL (32.0-36.0) 12/30/19 05:02 RDW 14.2 % (11.5-14.0) H 12/30/19 05:02 Plt Count 215 10^3/uL (150-450) 12/30/19 05:02 Lymph % (Auto) 12.4 % (13-45) L 12/25/19 17:54 [place] % (Auto) 6.7 % (3-13) 12/25/19 17:54 Eos % (Auto) 0.1 % (0-6) 12/25/19 17:54 Baso % (Auto) 0.4 % (0-2) 12/25/19 17:54 Reticulocyte # 0.026 10^6/uL (0.028-0.122) L 12/27/19 06:57 Absolute Neuts (auto) 11.6 10^3/uL (1.7-8.2) H 12/25/19 17:54 Absolute Lymphs (auto) 1.8 10^3/uL (0.5-4.7) 12/25/19 17:54 Absolute Monos (auto) 1.0 10^3/uL (0.1-1.4) 12/25/19 17:54 Absolute Eos (auto) 0.0 10^3/uL (0.0-0.6) 12/25/19 17:54 Absolute Basos (auto) 0.1 10^3/uL (0.0-0.2) 12/25/19 17:54 Seg Neutrophils % 80.4 % (42-78) H 12/25/19 17:54 Retic Count (auto) 0.78 % (0.66-2.85) 12/27/19 06:57 Sodium 137.0 mmol/L (137-145) 12/30/19 05:02 Potassium 5.0 mmol/L (3.6-5.0) 12/30/19 05:02 Chloride 101 mmol/L (98-107) 12/30/19 05:02 Carbon Dioxide 32 mmol/L (22-30) H 12/30/19 05:02 Anion Gap 7 (5-19) 12/30/19 05:02 BUN 9 mg/dL (7-20) 12/30/19 05:02 Creatinine 1.10 mg/dL (0.52-1.25) 12/30/19 05:02 Est GFR ( Amer) > 60 (>60) 12/30/19 05:02 Est GFR (MDRD) Non-Af 50 (>60) L 12/30/19 05:02 Glucose 103 mg/dL (75-110) 12/30/19 05:02 POC Glucose 143 mg/dL (70-110) H 12/28/19 18:32 Lactic Acid 1.1 mmol/L (0.7-2.1) 12/25/19 22:13 Calcium 8.8 mg/dL (8.4-10.2) 12/30/19 05:02 Phosphorus 2.5 mg/dL (2.5-4.5) 12/30/19 05:02 Magnesium 1.6 mg/dL (1.6-2.3) 12/30/19 05:02 Iron 52.5 ug/dL (37-170) 12/27/19 06:57 TIBC 177 ug/dL (250-450) L 12/27/19 06:57 % Saturation 30 % 12/27/19 06:57 Ferritin 139.00 ng/mL (11.1-264.0) 12/27/19 06:57 Total Bilirubin 0.4 mg/dL (0.2-1.3) 12/29/19 09:35 Direct Bilirubin 0.2 mg/dL (0.0-0.4) 12/29/19 09:35 Neonat Total Bilirubin Not Reportable 12/29/19 09:35 Neonat Direct Bilirubin Not Reportable 12/29/19 09:35 Neonat Indirect Bili Not Reportable 12/29/19 09:35 AST 23 U/L (14-36) 12/29/19 09:35 ALT 9 U/L (<35) 12/29/19 09:35 Alkaline Phosphatase 56 U/L (38-126) 12/29/19 09:35 Total Protein 5.1 g/dL (6.3-8.2) L 12/29/19 09:35 Albumin 2.9 g/dL (3.5-5.0) L 12/29/19 09:35 Lipase 289.8 U/L (23-300) 12/25/19 17:54 Vitamin B12 775.0 pg/mL (239-931) 12/26/19 16:20 Vitamin D 25-Hydroxy < 12.8 ng/mL (14.7-68.3) L 12/27/19 06:57 Folate 6.50 ng/mL (>2.76) 12/27/19 06:57 TSH 1.59 uIU/mL (0.47-4.68) 12/25/19 17:54 TSH 1.61 uIU/mL (0.47-4.68) 12/25/19 17:54 Free T4 1.74 ng/dL (0.78-2.19) 12/25/19 17:54 Free T3 pg/mL 1.68 pg/mL (2.77-5.27) L 12/25/19 17:54 Cortisol AM Sample 9.57 ug/dL (4.46-22.7) 12/30/19 05:02 Urine Color COLORLESS 12/30/19 09:20 Urine Appearance CLEAR 12/30/19 09:20 Urine pH 8.0 (5.0-9.0) 12/30/19 09:20 Ur Specific [place] 1.004 12/30/19 09:20 Urine Protein NEGATIVE mg/dL (NEGATIVE) 12/30/19 09:20 Urine Glucose (UA) NEGATIVE mg/dL (NEGATIVE) 12/30/19 09:20 Urine Ketones NEGATIVE mg/dL (NEGATIVE) 12/30/19 09:20 Urine Blood NEGATIVE (NEGATIVE) 12/30/19 09:20 Urine Nitrite NEGATIVE (NEGATIVE) 12/30/19 09:20 Urine Nitrite (Reflex) NEGATIVE (NEGATIVE) 12/26/19 08:15 Urine Bilirubin NEGATIVE (NEGATIVE) 12/30/19 09:20 Urine Urobilinogen NEGATIVE mg/dL (<2.0) 12/30/19 09:20 Ur Leukocyte Esterase NEGATIVE (NEGATIVE) 12/30/19 09:20 Leukocyte Esterase Rfl NEGATIVE (NEGATIVE) 12/26/19 08:15 Urine WBC (Auto) 1 /HPF 12/30/19 09:20 Urine RBC (Auto) 1 /HPF 12/30/19 09:20 Urine Bacteria (Auto) TRACE /HPF 12/26/19 08:15 Urine WBC (Reflex) 3 /HPF 12/26/19 08:15 Squamous Epi Cells Auto <1 /HPF 12/26/19 08:15 Urine Mucus (Auto) RARE /LPF 12/30/19 09:20 Urine Ascorbic Acid NEGATIVE (NEGATIVE) 12/30/19 09:20 Impressions: Abdomen/Pelvis CT 12/25/19 17:23 IMPRESSION: 1. Thickened appearance about the ascending and transverse colon and a noncontiguous pattern. This could be due to underdistention and peristalsis or colitis. Clinical correlation is recommended. 2. Cholelithiasis without gross CT evidence of acute cholecystitis, however ultrasound or HIDA scan could be performed as clinically directed. TECHNICAL DOCUMENTATION: Quality ID # [id number]: Final reports with documentation of one or more dose reduction techniques (e.g., Automated exposure control, adjustment of the mA and/or kV according to patient size, use of iterative reconstruction technique) copyright 2011 [employer]- All Rights Reserved Abdomen Ultrasound 12/25/19 21:21 IMPRESSION: 1. Gallbladder is difficult to visualize but does appear to have gallstones. No evidence of acute cholecystitis. 2. No hydronephrosis. No acute process is seen in the right upper quadrant. Plan Plan of Treatment: Patient is discharged home in stable condition. She is advised to follow up with her primary care provider within 1 week. Follow up with Dr. An next week. Take medications as prescribed. Drink plenty of water/fluids. Eat as tolerated. Return to the emergency department, as needed, for concerning symptoms. Time Spent: Greater than 30 Minutes Stroke Is this a Stroke Patient?: No Acute Heart Failure Is this a Heart Failure Patient?: No
[2019-12-31] MEDS ORDERED: FAT EMULSIONS 250 ML IV SCH (10:00)
== END 2019-12-30 13:44 | disposition home or self-care (01) | DRG 682 ==
LOC: ER 16:40 → OBSVTOIN 12-26 00:33 → EH 12-26 00:33 → 4W 12-26 01:45
PROVIDERS: ADMIT Emergency Medicine; ATTEND Registered Nurse
DX: N17.9 Acute kidney failure, unspecified (principal); E43 Unspecified severe protein-calorie malnutrition; R64 Cachexia; Z68.1 Body mass index [BMI] 19.9 or less, adult; E87.1 Hypo-osmolality and hyponatremia; K56.7 Ileus, unspecified; R62.7 Adult failure to thrive; C03.1 Malignant neoplasm of lower gum; E87.6 Hypokalemia; I25.10 Atherosclerotic heart disease of native coronary artery without angina pectoris; E78.5 Hyperlipidemia, unspecified; E83.39 Other disorders of phosphorus metabolism; K80.20 Calculus of gallbladder without cholecystitis without obstruction; M19.90 Unspecified osteoarthritis, unspecified site; Z87.891 Personal history of nicotine dependence; Z82.49 Family history of ischemic heart disease and other diseases of the circulatory system; Z83.3 Family history of diabetes mellitus; Z83.518 Family history of other specified eye disorder; Z71.3 Dietary counseling and surveillance; K59.00 Constipation, unspecified; Z86.69 Personal history of other diseases of the nervous system and sense organs; Z98.890 Other specified postprocedural states; Z23 Encounter for immunization
CPT/HCPCS: 36415; 74177; 76705; 80048; 80053; 81001; 82306; 82533; 82607; 82728; 82746; 82962; 83540; 83550; 83605; 83690; 83735; 84100; 84425; 84439; 84443; 84481; 84590; 85025; 85027; 85045; 90471; 90686; 96361; 96374; 99285; A9270-GY; G0008; J1644; J1650; J2405; J2765; J3411; J3475; J3480; J3490; J7030; J7050; J7120; S0028